=== PATIENT | male | born 1960 | race Caucasian/White ===

== ENCOUNTER 2017-04-19 06:42 | Inpatient (IN) ==
--- NOTE | 2017-04-18 20:40 | Discharge Summary ---
<Violeta Mcneal E - Last Filed: 04/18/17 20:38> Date of Encounter: 04/18/17 - Discharge Diagnosis (1) Fracture of proximal humerus with malunion Priority: Primary Status: Chronic Qualifiers: Encounter type: subsequent encounter Fracture type: closed Fracture morphology: unspecified fracture morphology Laterality: right Qualified Code (s): S42.201P - Unspecified fracture of upper end of right humerus, subsequent encounter for fracture with malunion (2) Seizures Priority: Secondary Status: Chronic Comments: Patient on Keppra (3) Hypothyroidism Priority: Secondary Status: Chronic Qualifiers: Hypothyroidism type: unspecified Qualified Code(s): E03.9 - Hypothyroidism , unspecified (4) Depression Priority: Secondary Status: Chronic Qualifiers: Depression Type: unspecified Qualified Code(s): F32.9 - Major depressive disorder, single episode, unspecified (5) BMI 27.0-27.9,adult Priority: Secondary Status: Chronic (6) Chronic pain Priority: Secondary Status: Chronic Comments: Patient takes Oxycodone 10mg QID from pain provider. Qualifiers: Chronic pain type: other chronic pain Qualified Code(s): G89.29 - Other chronic pain (7) Chronic deep vein thrombosis (DVT) Priority: Secondary Status: Chronic Qualifiers: DVT location: lower extremity Affected thrombotic vein of extremity: unspecified vein of extremity Laterality: unspecified laterality Qualified Code(s): I82.509 - Chronic embolism and thrombosis of unspecified deep veins of unspecified lower extremity - Discharge Medications Home Medications: Gabapentin [Neurontin] 800 mg PO QID 01/26/17 [History] LevETIRAcetam [Keppra] 500 mg PO BID 01/26/17 [History] OxyCODONE Immed Rel [Roxicodone 5 MG] 5 - 10 mg PO Q6HR PRN #40 tablet 04/18/17 [Rx] Levothyroxine [Synthroid] 75 mcg PO QAM 04/19/17 [History] Propranolol [Inderal] 10 mg PO BID 04/19/17 [History] Sertraline [Zoloft] 50 mg PO DAILY 04/19/17 [History] Allergies/Adverse Reactions: Allergies Penicillins Allergy (Verified 01/26/17 11:39) Anaphylaxis Primary care physician: Osmany Shepherd MD - Patient Status Disposition: Home, Self-Care Condition: Good - Discharge Instructions Follow Up With: Osmany Shepherd MD [Primary Care Provider] - - Hospital Course Hospital course: Mr. Ortiz is a 57 year old male - Time Spent with Patient Total time spent providing and/or coordinating discharge services: - VTE Documentation of Mechanical Device: Venous foot pump, device <Saji Nicholas - Last Filed: 04/20/17 07:53> Date of Encounter: 04/20/17 Time of Encounter: 07:51 - Discharge Diagnosis (1) Brachial plexus injury Priority: Secondary Status: Chronic Qualifiers: Encounter type: subsequent encounter Qualified Code(s): S14.3XXD - Injury of brachial plexus, subsequent encounter (2) HTN (hypertension) Priority: Secondary Status: Chronic Qualifiers: Hypertension type: essential hypertension Qualified Code(s): I10 - Essential (primary) hypertension (3) Seizure disorder Priority: Secondary Status: Chronic (4) Fracture of proximal humerus with malunion Priority: Primary Status: Acute Qualifiers: Encounter type: subsequent encounter Fracture type: closed Fracture morphology: unspecified fracture morphology Laterality: right Qualified Code (s): S42.201P - Unspecified fracture of upper end of right humerus, subsequent encounter for fracture with malunion (5) Hypothyroidism Priority: Secondary Status: Chronic Qualifiers: Hypothyroidism type: unspecified Qualified Code(s): E03.9 - Hypothyroidism , unspecified (6) Depression Priority: Secondary Status: Chronic Qualifiers: Depression Type: unspecified Qualified Code(s): F32.9 - Major depressive disorder, single episode, unspecified (7) BMI 27.0-27.9,adult Priority: Secondary Status: Chronic (8) Chronic pain Priority: Secondary Status: Chronic Qualifiers: Chronic pain type: other chronic pain Qualified Code(s): G89.29 - Other chronic pain (9) Chronic deep vein thrombosis (DVT) Priority: Secondary Status: Chronic Qualifiers: DVT location: lower extremity Affected thrombotic vein of extremity: unspecified vein of extremity Laterality: unspecified laterality Qualified Code(s): I82.509 - Chronic embolism and thrombosis of unspecified deep veins of unspecified lower extremity Primary care physician: Osmany Shepherd MD - Patient Status Functional capacity at discharge: independent ambulation Overall status at discharge: patient is progressing back to baseline - Hospital Course Hospital course: Mr. Ortiz is a 57 year old male That is post right total shoulder replacement. Doing well this morning patient has significant issues with both hips and left shoulder. Patient will hold shoulder motion for 4-6 weeks. All questions answered - Time Spent with Patient Total time spent providing and/or coordinating discharge services:
--- NOTE | 2017-04-19 06:55 | History & Physical Report ---
Date of Encounter: 04/19/17 Time of Encounter: 06:55 24 Hour HP Update - Instructions Instructions: If the History and Physical is less than 30 days old and was completed prior to A.M. admission and or procedure and has NOT been updated on calendar day of procedure please complete this update prior to performing procedure. - Update Patient reports changes in Medical Condition: No Changes in examination, assessment, or condition: No Changes in Medication: No Preop tests/diagnostics Reviewed: Yes Surgery Remains Indicated: Yes Consent for Planned Operative Procedure(s) Verified: Yes - Pre-Operative Checklist Preoperative Checklist Indicated: No Prophylactic Antibiotic Ordered: Yes Is VTE Prophylaxis Indicated?: Yes
[2017-04-19] MEDS ORDERED: CeFAZolin Pre 2,000 MG/100 ML 2,000 MG/100 ML BAG IVPB ONE (07:12)
[2017-04-19] MEDS: Ringers Solution, Lactated 1,000 ML IVC SCH ×2 (07:46→09:45)
[2017-04-19] MEDS ORDERED: Famotidine 20 MG/2 ML VIAL IVP ONE (07:55)
[2017-04-19] MEDS ORDERED: Gabapentin 300 MG CAPSULE PO ONE (07:56)
--- NOTE | 2017-04-19 08:04 | Anesthesia Evaluation PreOp ---
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) Other Medical History: Denies Any Significant HX, Thyroid Alcohol Use: none Drug use: none Medications and Allergies Gabapentin [Neurontin] 800 mg PO QID 01/26/17 [History] LevETIRAcetam [Keppra] 500 mg PO BID 01/26/17 [History] OxyCODONE Immed Rel [Roxicodone 5 MG] 5 - 10 mg PO Q6HR PRN #40 tablet 04/18/17 [Rx] Levothyroxine [Synthroid] 75 mcg PO QAM 04/19/17 [History] Propranolol [Inderal] 10 mg PO BID 04/19/17 [History] Sertraline [Zoloft] 50 mg PO DAILY 04/19/17 [History] Allergies Penicillins Allergy (Verified 01/26/17 11:39) Anaphylaxis - Meds/Allergy Pre-op Review Medications Reviewed: Yes Allergies Reviewed: Yes Beta Blockers on Current Med List: Yes (Took Proprenolol last night 1999) Anesthesia Results - Labs Laboratory Tests 03/22/17 03/22/17 09:05 09:05 Hgb 16.4 Hct 50.2 H Plt Count 332 Sodium 138 Potassium 3.7 BUN 14 Creatinine 1.02 Anesthesia Exam O2 Sat Height 1.79 m Height 1.79 m Height 1.79 m Weight 86.183 kg Weight 86.183 kg Weight 86.183 kg O2 Sat by Pulse Oximetry 98 Vital Signs Temp Pulse Resp BP Pulse Ox 98.3 F 102 18 135/90 98 04/19/17 06:52 04/19/17 06:52 04/19/17 06:52 04/19/17 06:52 04/19/17 06:52 Height: 5'11 Weight: 190 lbs NPO (# of Hours): MN Pain Scale: 0 - HEENT Pupil (Motor): Pupils equal, EOMI Mallampati: II Teeth: Edentulous Oral Opening: Less than or equal to 3 - DOG BEAUTICIAN LOC: Oriented DOG BEAUTICIAN Motor: Normal RUE, Normal LUE, Normal RLE, Normal LLE, Normal Face DOG BEAUTICIAN Sensory: Normal: RUE, LUE, RLE, LLE, Face - Cardiac Rhythm: Regular Murmur: None JVD: No Carotid Bruit: No - Pulmonary Breath Sounds: bilateral Clear Respiratory Effort: Symmetrical Anesthesia Assess/Plan ASA Score: 2 Modified Rj Scale for Level of Consciousness: Cooperative, oriented, and tranquil Anesthetic Plan: General, Regional Monitoring Plan: Standard Monitors Recovery Plan: PACU (Discussed GA and RA, agrees to proceed)
[2017-04-19] MEDS ORDERED: *HR* Promethazine 25 MG/ML VIAL IVP PRN (08:59)
[2017-04-19] MEDS ORDERED: *HR* Labetalol 20 MG/4 ML SYRINGE IVP PRN (08:59)
--- NOTE | 2017-04-19 09:09 | Anesthesia Procedures ---
Date of Encounter: 04/19/17 Time of Encounter: 08:30 Procedures: Anesthesia - Nerve Block Procedure Date: 04/19/17 Time: 08:30 Allergies/Adv Reactions: pcn Pre-op Diagnosis: right -rotator cuff arthropathy Surgical Procedure: right total shoulder Checklist: Correct Patient Identifier, Correct procedure, History checked Correct side: Right Blood Thinner: No Monitor Applied: EKG, BP, Pulse Oximetry Supplemental Oxygen via Nasal Cannula (L/min): 2 Sedation: Versed (mg): 4 Sedation: Fentanyl (mcg): 100 Indication: Post Op Analgesia Pre-op Neuro Deficits: No Block Type: Supraclavicular, Other (ICB AND SCP) Catheter placed: No Sterile Technique: Yes Ultrasound used: Yes Anatomy identified: Yes Visual spread of Local: Yes Neuro Stimulation: Yes Nerve Stimulator Range: 0.2 - 0.4 mA Blood on Needle Aspiration: No Smooth Injection of Local: Yes Pain with Injection of Local: No Prep: Chlorhexadine Needle: 22 x 50 mm Stimuplex Local: 0.25% Bupivicaine w/Clonidine 20 mcg/cc (ICB/SCP), Ropivacaine (WITH 8MG DECADRON ) Volume (cc): 50 Number of Attempts: 1 Complications: None/effective block Vitals: Vital Signs - Last 8 Hours Temp Pulse Resp BP Pulse Ox 04/19/17 08:38 92 16 126/82 96 04/19/17 08:28 92 16 122/89 95 04/19/17 08:15 87 16 137/98 97 04/19/17 06:52 98.3 F 102 18 135/90 98 Intake and Output 04/18/17 04/19/17 04/19/17 23:59 07:59 15:59 Other: Weight 86.183 kg Patient Weight 04/19/17 23:59 Weight 86.183 kg Comments: PER DR. NICHOLSON REQUEST
--- NOTE | 2017-04-19 10:35 | Orthopedic Operative Note ---
Date of procedure: 04/19/17 Pre-op diagnosis: Right proximal humeral malunion Post-op diagnosis: same Procedure: Procedure: Right Total Shoulder Replacment Reverse, Estimated blood loss: 300 cc Hardware: Metal and polyethylene replacement: Arthrex large glenoid baseplate, 2 4.5 screws. 1 6.5 screw, 42+4 glenosphere, 11 humeral stem, +9 metal 3 constrained Yanet Exam Under anesthesia: Global restriction of motion Procedural Notes: Patient with severe malunion of right proximal humerus following fracture. Operative procedure: The patient was brought to the operating room and placed on the operating room table. After general anesthesia was administered the operative shoulder was examined. Findings were noted. The patient was placed in the modified beachchair position. All pressure points were padded appropriately. And the head was stabilized in the neutral position. The operative extremity was prepped and draped in the sterile surgical fashion. The patient received IV antibiotics prior to skin incision. A standard deltopectoral approach was made to the operative shoulder. Incision was made to the skin and subcutaneous tissue,hemo stasis was obtained with Bovie cautery. Using careful blunt dissection the cephalic vein was identified and mobilized medially. The deltopectoral interval was developed and the clavipectoral fascia was incised. The patient had extensive abnormal anatomy subperiosteal dissection was required to expose the abnormal proximal humerus humeral head was healed in a posterior superior position extensive osteotomies were performed to help mobilize the proximal humerus expose the glenoid. Anterior and posterior Bankart retractors were placed to expose the glenoid. The glenoid guide was seated and the centering hole was made. It was reamed with the appropriate reamer. The large glenoid baseplate was seated and secured with (2) 4.5 screws and one 6.5 screw. The baseplate was irrigated and dried and the 2+4 Glenosphere was seated and secured with the Aguilar taper. The Aguilar taper was tested and found to be secure the humerus was redislocated and prepared with the diaphyseal reamers, followed by a broaching process up to the appropriate size 11 in 20 degrees of retroversion. Trial reduction found the shoulder to be relocatable. The appropriate 11 stem was impacted in place in the patient's anatomic version. Trial reduction found the shoulder to be relocatable and stable with the appropriate 9 metal and 3 constrained Yanet Trial component was removed and the real implants was seated and secured the shoulder was reduced. The shoulder had excellent motion and excellent stability and no evidence of dislocation. The deep tissue was irrigated with pulse irrigation. The PA close the shoulder Violeta Moore. The deltopectoral interval was closed with a running #1 PDS suture, subcutaneous tissue was irrigated and closed with 0 PDS suture, the skin was closed with skin tara. The patient was placed in a sterile dressing, abduction brace and extubated. The patient was then transferred to the recovery room in stable condition. Anesthesia: GETA Surgeon: Saji Nicholas Condition: stable Disposition: PACU
[2017-04-19] MEDS: *HR* HYDROmorphone (PF) 1 MG/ML SYRINGE IVP PRN ×6 (11:00→23:08)
--- NOTE | 2017-04-19 11:21 | Anesthesia Evaluation Post Op ---
Date of Encounter: 04/19/17 Time of Encounter: 11:20 - Vital Signs Vital Signs: Vital Signs/O2 Sat/Glucose, Most Current Temp Pulse Resp BP Pulse Ox 04/19/17 11:11 89 14 120/82 95 04/19/17 11:01 96 16 127/83 98 04/19/17 10:51 98.7 F 89 20 126/78 100 04/19/17 08:38 92 16 126/82 96 04/19/17 08:28 92 16 122/89 95 04/19/17 08:15 87 16 137/98 97 - Lungs Lungs: Clear Ascult./Percussion - Airway Airway: Non-obstructed - Cardiovascular Regular Rate - Mental Status Mental Status: Alert & Oriented, Answers Appropriately - Pain Pain Scale: 2 - Nausea Vomiting Nausea Vomiting: Not Present - Hydration Hydration: Ice chips - Discharge PostOp Status: Transfer Patient to floor
[2017-04-19] MEDS ORDERED: Naloxone 0.4 MG/ML INJ IVP PRN (11:41)
[2017-04-19] MEDS ORDERED: MOM Conc 10 ML UD.LIQ PO PRN (11:41)
[2017-04-19] MEDS ORDERED: Sennosides 8.6 MG TABLET PO PRN (11:41)
[2017-04-19] MEDS ORDERED: Ringers Solution, Lactated 1,000 ML IVC SCH (11:41)
[2017-04-19] MEDS ORDERED: Temazepam 15 MG CAPSULE PO PRN (11:41)
[2017-04-19] MEDS ORDERED: Ondansetron 4 MG/2 ML VIAL IVP PRN (11:41)
[2017-04-19] MEDS ORDERED: *HR* OxyCODONE Immed Rel 5 MG TABLET PO PRN (11:41)
[2017-04-19 11:49] LABS: Hematocrit 42.7 % (37.5-50.1); Hemoglobin 13.6 g/dL (12.9-16.9)
[2017-04-19] MEDS: *HR* OxyCODONE Immed Rel 5 MG TABLET PO PRN ×3 (12:40→21:11)
[2017-04-19] MEDS: Gabapentin 400 MG CAPSULE PO SCH ×3 (14:13→21:04)
[2017-04-19] MEDS: Clindamycin 900 MG/50 ML 900 MG/50 ML IV.SOLN IVPB SCH ×2 (16:46→23:39)
[2017-04-19] MEDS ORDERED: levETIRAcetam 250 MG TABLET PO SCH (21:00)
[2017-04-20] MEDS: *HR* OxyCODONE Immed Rel 5 MG TABLET PO PRN ×3 (01:23→09:29)
[2017-04-20 06:36] LABS: Hematocrit 35.6 % (37.5-50.1)
[2017-04-20 06:37] LABS: Hemoglobin 11.3 g/dL (12.9-16.9)
[2017-04-20 07:09] VITALS: BP 93/59
--- NOTE | 2017-04-20 07:53 | Orthopedics Progress Note ---
Date of Encounter: 04/20/17 Time of Encounter: 07:53 - Assessment and Plan (1) Brachial plexus injury Current Visit: No Status: Chronic Qualifiers: Encounter type: subsequent encounter Qualified Code(s): S14.3XXD - Injury of brachial plexus, subsequent encounter (2) HTN (hypertension) Current Visit: No Status: Chronic Qualifiers: Hypertension type: essential hypertension Qualified Code(s): I10 - Essential (primary) hypertension (3) Seizure disorder Current Visit: No Status: Chronic (4) Fracture of proximal humerus with malunion Current Visit: Yes Status: Acute Qualifiers: Encounter type: subsequent encounter Fracture type: closed Fracture morphology: unspecified fracture morphology Laterality: right Qualified Code (s): S42.201P - Unspecified fracture of upper end of right humerus, subsequent encounter for fracture with malunion (5) Hypothyroidism Current Visit: Yes Status: Chronic Qualifiers: Hypothyroidism type: unspecified Qualified Code(s): E03.9 - Hypothyroidism , unspecified (6) Depression Current Visit: Yes Status: Chronic Qualifiers: Depression Type: unspecified Qualified Code(s): F32.9 - Major depressive disorder, single episode, unspecified (7) BMI 27.0-27.9,adult Current Visit: Yes Status: Chronic (8) Chronic pain Current Visit: Yes Status: Chronic Qualifiers: Chronic pain type: other chronic pain Qualified Code(s): G89.29 - Other chronic pain (9) Chronic deep vein thrombosis (DVT) Current Visit: Yes Status: Chronic Qualifiers: DVT location: lower extremity Affected thrombotic vein of extremity: unspecified vein of extremity Laterality: unspecified laterality Qualified Code(s): I82.509 - Chronic embolism and thrombosis of unspecified deep veins of unspecified lower extremity Subjective Interval history: Patient was seen this morning doing well without complaints. Afebrile vital signs stable. Operative extremity: Neurovascularly intact Dressing clean dry and intact Calves nontender Assessment and plan: Continue with postoperative care Hematocrit 35 discharged today hold shoulder motion Objective Vital signs: Vital Signs Temp Pulse Resp BP Pulse Ox 04/20/17 07:05 99.5 F 91 18 93/59 93 04/19/17 21:28 98.2 F 100 16 105/65 94 04/19/17 15:43 98.6 F 105 16 91/66 94 04/19/17 14:40 98.5 F 100 14 101/66 94 07/12/17 13:50 98.5 F 100 14 119/78 95 04/19/17 12:53 99.3 F 98 16 99/62 95 04/19/17 12:42 98.3 F 99 16 110/76 97 04/19/17 12:16 98.4 F 93 16 127/85 95 04/19/17 11:40 98.6 F 85 16 121/82 97 04/19/17 11:21 98.6 F 94 18 122/84 96 04/19/17 11:11 89 14 120/82 95 04/19/17 11:01 96 16 127/83 98 04/19/17 10:51 98.7 F 89 20 126/78 100 04/19/17 08:38 92 16 126/82 96 04/19/17 08:28 92 16 122/89 95 04/19/17 08:15 87 16 137/98 97 Intake and Output 04/19/17 04/19/17 04/20/17 15:59 23:59 07:59 Intake Total 1100 / 1100 50 / 50 Output Total 300 / 300 375 / 375 1949 Balance 800 / 800 -325 / -325 -1949 / Intake: IV Fluids 1100 / 1100 50 / 50 Lactated Ringers 1,000 ML 1000 / 1000 @ 25 mls/hr IVC .Q24H [facility] Rx#:[id number] Ancef Premix 2,000 MG/100 100 / 100 ML 2,000 mg In 100 ml @ 200 mls/hr IVPB PREOP ONE Rx#:[id number] Cleocin Premix 900 MG/50 50 / 50 ML 900 mg In 50 ml @ 50 mls/hr IVPB Q8HR [facility] Rx#: [id number] Oral 0 / 0 Output: Urine 375 / 375 1949 Estimated Blood Loss 300 / 300 - Labs CBC & BMP: 04/20/17 04:05 Labs: Abnormal lab results Hgb 11.3 g/dL (12.9-16.9) L D 04/20/17 04:05 Hct 35.6 % (37.5-50.1) L 04/20/17 04:05 - VTE Documentation of Mechanical Device: Venous foot pump, device Consult Discharge Plan - Plan Referrals: Osmany Shepherd MD [Primary Care Provider] -
== END 2017-04-20 10:45 | disposition home or self-care (01) | DRG 483 ==
LOC: SAMDAY 06:42 → 3NENU 11:42
PROVIDERS: ADMIT Orthopaedic Surgery; ATTEND Orthopaedic Surgery

== ENCOUNTER 2017-07-03 12:41 | Inpatient (IN) ==
--- NOTE | 2017-07-03 08:29 | Discharge Summary ---
<Mónica West - Last Filed: 07/03/17 08:25> Date of Encounter: 07/03/17 - Discharge Diagnosis (1) Arthritis of left hip Priority: Primary Status: Acute (2) Status post total hip replacement, left Priority: Primary Status: Acute (3) HTN (hypertension) Priority: Secondary Status: Chronic Qualifiers: Hypertension type: essential hypertension (4) Chronic pain Priority: Secondary Status: Chronic Comments: Chronic pain medication stopped in May. Qualifiers: Chronic pain type: other chronic pain - Discharge Medications Home Medications: Aspirin Enteric Coated [Aspirin EC] 325 mg PO DAILY #21 tablet. 07/03/17 [Rx] Gabapentin [Neurontin] 800 mg PO QID 07/03/17 [History] Levothyroxine [Synthroid] 75 mcg PO 0630 07/03/17 [History] OxyCODONE Immed Rel [Roxicodone 5 MG] 5 mg PO Q6HR PRN #28 tablet 07/03/17 [Rx] Pantoprazole Sodium [Protonix] 40 mg PO BID 07/03/17 [History] Propranolol [Inderal] 10 mg PO BID 07/03/17 [History] Sucralfate [Carafate] 1 gm PO TID 07/03/17 [History] Allergies/Adverse Reactions: 3 Allergy/AdvReac Type Severity Reaction Status Date / Time Penicillins Allergy Anaphylaxis Verified 07/03/17 13:06 Primary care physician: PCP NONE - Patient Status Disposition: Home, Self-Care Condition: Good - Discharge Instructions Follow Up With: NONE,PCP [Non-Partnered Physician] - - Hospital Course Hospital course: Mr. 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: Secondary Status: Chronic (2) Brachial plexus injury Priority: Secondary Status: Chronic Qualifiers: Encounter type: subsequent encounter Qualified Code(s): S14.3XXD - Injury of brachial plexus, subsequent encounter (3) HTN (hypertension) Priority: Secondary Status: Chronic Qualifiers: Hypertension type: unspecified secondary hypertension Qualified Code(s): I15.9 - Secondary hypertension, unspecified; I15 - Secondary hypertension (4) Seizure disorder Priority: Secondary Status: Chronic (5) Fracture of proximal humerus with malunion Priority: Secondary Status: Chronic Qualifiers: Fracture type: closed Fracture morphology: unspecified fracture morphology Laterality: right (6) Hypothyroidism Priority: Secondary Status: Chronic Qualifiers: Hypothyroidism type: unspecified Qualified Code(s): E03.9 - Hypothyroidism , unspecified (7) Depression Priority: Secondary Status: Chronic Qualifiers: Depression Type: unspecified Qualified Code(s): F32.9 - Major depressive disorder, single episode, unspecified (8) Chronic pain Priority: Secondary Status: Chronic Qualifiers: Chronic pain type: other chronic pain Qualified Code(s): G89.29 - Other chronic pain (9) Chronic deep vein thrombosis (DVT) Priority: Secondary Status: Chronic Qualifiers: DVT location: lower extremity Affected thrombotic vein of extremity: unspecified vein of extremity Laterality: unspecified laterality Qualified Code(s): I82.509 - Chronic embolism and thrombosis of unspecified deep veins of unspecified lower extremity (10) Arthritis of left hip Priority: Primary Status: Chronic (11) Status post total hip replacement, left Priority: Primary Status: Acute Primary care physician: Sly Bain DO - Patient Status Functional capacity at discharge: uses cane/walker Overall status at discharge: patient is progressing back to baseline - Hospital Course Hospital course: Mr. Ortiz is a 57 year old male Status post left total hip replacement patient with this use of acute blood loss anemia requiring transfusion no obvious drainage on incision bandage wound clean dry and intact. The patient had an uneventful postoperative course. They received antibiotics and physical therapy and were discharged in stable condition. There will follow -up in the office in 2 weeks. - Time Spent with Patient Total time spent providing and/or coordinating discharge services:
--- NOTE | 2017-07-03 13:09 | History & Physical Report ---
Date of Encounter: 07/03/17 Time of Encounter: 13:09 24 Hour HP Update - Instructions Instructions: If the History and Physical is less than 30 days old and was completed prior to A.M. admission and or procedure and has NOT been updated on calendar day of procedure please complete this update prior to performing procedure. - Update Patient reports changes in Medical Condition: No Changes in examination, assessment, or condition: No Changes in Medication: No Preop tests/diagnostics Reviewed: Yes Surgery Remains Indicated: Yes Consent for Planned Operative Procedure(s) Verified: Yes - Pre-Operative Checklist Preoperative Checklist Indicated: No Prophylactic Antibiotic Ordered: Yes Is VTE Prophylaxis Indicated?: Yes
[2017-07-03] MEDS ORDERED: Lidocaine -MPF 1% 2 ML VIAL ID ONE (13:23)
[2017-07-03] MEDS ORDERED: CeFAZolin Pre 2,000 MG/100 ML 2,000 MG/100 ML BAG IVPB ONE (13:23)
[2017-07-03] MEDS ORDERED: Plasma-Lyte A (PH 7.4) 1,000 ML IVC SCH (13:30)
--- NOTE | 2017-07-03 14:22 | Anesthesia Evaluation PreOp ---
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 07/03/17 [Rx] Gabapentin [Neurontin] 800 mg PO QID 07/03/17 [History] Levothyroxine [Synthroid] 75 mcg PO 0630 07/03/17 [History] OxyCODONE Immed Rel [Roxicodone 5 MG] 5 mg PO Q6HR PRN #28 tablet 07/03/17 [Rx] Pantoprazole Sodium [Protonix] 40 mg PO BID 07/03/17 [History] Propranolol [Inderal] 10 mg PO BID 07/03/17 [History] Sucralfate [Carafate] 1 gm PO TID 07/03/17 [History] 3 Allergy/AdvReac Type Severity Reaction Status Date / Time Penicillins Allergy Anaphylaxis Verified 07/03/17 13:06 - Meds/Allergy Pre-op Review Medications Reviewed: Yes Allergies Reviewed: Yes Beta Blockers on Current Med List: No Anesthesia Results - Labs Laboratory Tests 06/28/17 06/28/17 14:46 14:46 Hgb 13.4 Hct 42.7 Plt Count 319 Sodium 136 Potassium 4.5 BUN 17 Creatinine 0.80 - Imaging EKG: pending Anesthesia Exam Height: 5'10 Weight: 200 lbs NPO (# of Hours): [place] Pain Scale: 0 - HEENT Pupil (Motor): Pupils equal, EOMI Mallampati: III Oral Opening: Less than or equal to 3 - DOMESTIC VIOLENCE COUNSELOR LOC: Oriented DOMESTIC VIOLENCE COUNSELOR Motor: Normal RUE, Normal LUE, Normal RLE, Normal LLE, Normal Face DOMESTIC VIOLENCE COUNSELOR Sensory: Normal: RUE, LUE, RLE, LLE, Face - Cardiac Rhythm: Regular Murmur: None JVD: No Carotid Bruit: No - Pulmonary Breath Sounds: bilateral Clear Respiratory Effort: Symmetrical Anesthesia Assess/Plan ASA Score: 2 Modified Rj Scale for Level of Consciousness: Cooperative, oriented, and tranquil Anesthetic Plan: General Monitoring Plan: Standard Monitors Recovery Plan: PACU (Discussed GA, agrees to proceed)
[2017-07-03] MEDS ORDERED: Ondansetron 4 MG/2 ML VIAL ONE (14:44)
[2017-07-03] MEDS ORDERED: *HR* Propofol 200 MG/20 ML VIAL IVP ONE (14:44)
[2017-07-03] MEDS ORDERED: *HR* Succinylcholine 200 MG/10 ML VIAL IVP ONE (14:44)
[2017-07-03] MEDS ORDERED: Lidocaine -MPF 2% 2 ML VIAL ONE (14:44)
[2017-07-03] MEDS ORDERED: *HR* Midazolam HCl 2 MG/2 ML VIAL ONE (14:45)
[2017-07-03] MEDS ORDERED: *HR* FentaNYL (PF) 100 MCG/2 ML VIAL ONE ×2 (14:47→15:38)
[2017-07-03] MEDS ORDERED: *HR* Meperidine 25 MG/ML SYRINGE IVP PRN (15:01)
[2017-07-03] MEDS ORDERED: Ondansetron 4 MG/2 ML VIAL IVP ONE (15:01)
[2017-07-03] MEDS ORDERED: Acetaminophen IV 1,000 MG/100 ML INFUS..BTL IVPB ONE (15:05)
[2017-07-03] MEDS ORDERED: *HR* Labetalol 20 MG/4 ML SYRINGE IVP PRN (15:07)
[2017-07-03] MEDS ORDERED: Acetaminophen IV 1,000 MG/100 ML INFUS..BTL ONE (15:34)
[2017-07-03] MEDS ORDERED: *HR* HYDROmorphone 2 MG/ML SYRINGE ONE (16:09)
--- NOTE | 2017-07-03 16:31 | Orthopedic Operative Note ---
Date of procedure: 07/03/17 Pre-op diagnosis: Left hip arthritis Post-op diagnosis: same Procedure: Procedure: Left Total Hip Replacment Estimated blood loss: 200 cc Hardware: Metal and polyethylene replacement. Biomet DM Cup: C2 G7 fin cup Femoral size 15 echo full profile lateralized stem Head: 3 head with Yanet Procedural Notes: Grade 4 arthritic changes femoral head acetabular socket. Operative procedure: The patient was brought to the operating room and placed on the operating room table. After general anesthesia was administered the patient was placed in the lateral decubitus position with the operative leg up. All pressure points were padded appropriately and the head was stabilized in the neutral position. The operative extremity was prepped and draped in the sterile surgical fashion patient received IV antibiotic prior to skin incision. A standard posterior approach is made to the operative hip, the incision was made through the skin and subcutaneous tissue hemostasis was obtained with Bovie cautery. Using careful sharp dissection the fascia was identified and incised exposing the external rotators. The external rotators were released off the greater trochanter and tagged with #2 FiberWire suture. The capsule was T'd open and the hip was brought into internal rotation. Patient noted to have grade 4 arthritic changes femoral head. The femoral neck cut was made at the appropriate level. An anterior capsulotomy was performed for the anterior retractor. Soft tissues removed from the acetabulum. Patient noted to have grade 4 arthritic changes acetabulum. Acetabulum was first reamed medially, and then reamed in 15 degrees of anteversion and 45 degrees off the horizontal. It was reamed up to the appropriate size 62 The appropriate-sized 62 acetabular cup was impacted in place in 15 degrees of anteversion and 45 degrees off the horizontal. This had good fit and fixation. The hip was brought back in to internal rotation and prepared with the drawing box tender followed by the canal finder followed by broaching process in 20 degrees anteversion. It was broached up to the appropriate size 15 The femoral implant was impacted in place in 20 degrees of anteversion. Trial reduction found the hip to be stable with 3 head and Yanet. The trials were removed and the real implants were impacted in place. The hip was reduced, patient had apparent equal leg lengths. The hip had excellent stability with forward flexion to 90 degrees adduction of 30 degrees and internal rotation of 60 degrees. The hip had no shuck. The hips after 2 minutes with a Betadine saline solution. It was irrigated out with 2 L of pulse irrigation. The PA closed the hip. Fascia was closed with a running #2 PDS suture. The deep tissue was irrigated and closed deep with #1 PDS suture superficially with 0 PDS suture and skin was closed with Dermabond and skin tara. The patient was placed in a sterile dressing and abduction pillow. The patient was extubated and transferred to the recovery room in stable condition. Anesthesia: MITCH Surgeon: Saji Nicholas Tax Processor: Violeta Mcneal Condition: stable Disposition: PACU
[2017-07-03] MEDS ORDERED: *HR* HYDROmorphone (PF) 1 MG/ML SYRINGE IVP PRN ×2 (16:42→18:27)
[2017-07-03] MEDS: *HR* HYDROmorphone (PF) 1 MG/ML SYRINGE IVP PRN ×2 (17:30→17:42)
--- NOTE | 2017-07-03 17:56 | Anesthesia Evaluation Post Op ---
Date of Encounter: 07/03/17 Time of Encounter: 17:56 - Vital Signs Vital Signs: Last Vital Signs Temp 99.0 F 07/03/17 17:28 Pulse 97 07/03/17 17:48 Resp 16 07/03/17 17:48 BP 109/74 07/03/17 17:48 Pulse Ox 97 07/03/17 17:48 - Lungs Lungs: Clear Ascult./Percussion - Airway Airway: Non-obstructed - Cardiovascular Regular Rate - Mental Status Mental Status: Alert & Oriented, Answers Appropriately - Pain Pain Scale: 4 - Nausea Vomiting Nausea Vomiting: Not Present - Hydration Hydration: NPO - Discharge PostOp Status: Transfer Patient to floor
[2017-07-03] MEDS ORDERED: *HR* Enoxaparin 30 MG/0.3 ML SYRINGE SQ SCH (18:00)
[2017-07-03 18:20] LABS: Hematocrit 42.1 % (37.5-50.1); Hemoglobin 12.4 g/dL (12.9-16.9)
[2017-07-03] MEDS ORDERED: Sennosides 8.6 MG TABLET PO PRN (18:27)
[2017-07-03] MEDS ORDERED: Ondansetron 4 MG/2 ML VIAL IVP PRN (18:27)
[2017-07-03] MEDS ORDERED: MOM Conc 10 ML UD.LIQ PO PRN (18:27)
[2017-07-03] MEDS ORDERED: Temazepam 15 MG CAPSULE PO PRN (18:27)
[2017-07-03] MEDS ORDERED: Naloxone 0.4 MG/ML INJ IVP PRN (18:27)
[2017-07-03] MEDS: Gabapentin 400 MG CAPSULE PO SCH ×2 (19:39→20:29)
[2017-07-03] MEDS: Ascorbic Acid 500 MG TABLET PO SCH (19:41)
[2017-07-03] MEDS: *HR* OxyCODONE Immed Rel 5 MG TABLET PO PRN ×3 (19:41→23:46)
[2017-07-03] MEDS: Clindamycin 900 MG/50 ML 900 MG/50 ML IV.SOLN IVPB SCH (19:41)
[2017-07-03] MEDS: Ringers Solution, Lactated 1,000 ML IVC SCH (20:18)
[2017-07-04] MEDS: Clindamycin 900 MG/50 ML 900 MG/50 ML IV.SOLN IVPB SCH (03:04)
[2017-07-04] MEDS: *HR* OxyCODONE Immed Rel 5 MG TABLET PO PRN (05:14)
[2017-07-04] MEDS: *HR* Enoxaparin 30 MG/0.3 ML SYRINGE SQ SCH ×2 (05:15→16:40)
[2017-07-04] MEDS ORDERED: Ketorolac 30 MG/ML VIAL IVP ONE ×2 (06:30→18:23)
[2017-07-04] MEDS ORDERED: Acetaminophen IV 500 MG/50 ML INFUS..BTL IVPB ONE (06:31)
--- NOTE | 2017-07-04 06:42 | Orthopedics Progress Note ---
Date of Encounter: 07/04/17 Time of Encounter: 06:42 - Assessment and Plan (1) Status post reverse total replacement of right shoulder Current Visit: Yes Status: Chronic (2) Brachial plexus injury Current Visit: No Status: Chronic Qualifiers: Encounter type: subsequent encounter Qualified Code(s): S14.3XXD - Injury of brachial plexus, subsequent encounter (3) HTN (hypertension) Current Visit: No Status: Chronic Qualifiers: Hypertension type: unspecified secondary hypertension Qualified Code(s): I15.9 - Secondary hypertension, unspecified; I15 - Secondary hypertension (4) Seizure disorder Current Visit: No Status: Chronic (5) Fracture of proximal humerus with malunion Current Visit: No Status: Chronic Qualifiers: Fracture type: closed Fracture morphology: unspecified fracture morphology Laterality: right Qualified Code(s): S42.201P - Unspecified fracture of upper end of right humerus, subsequent encounter for fracture with malunion (6) Hypothyroidism Current Visit: No Status: Chronic Qualifiers: Hypothyroidism type: unspecified Qualified Code(s): E03.9 - Hypothyroidism , unspecified (7) Depression Current Visit: No Status: Chronic Qualifiers: Depression Type: unspecified Qualified Code(s): F32.9 - Major depressive disorder, single episode, unspecified (8) Chronic pain Current Visit: No Status: Chronic Qualifiers: Chronic pain type: other chronic pain Qualified Code(s): G89.29 - Other chronic pain (9) Chronic deep vein thrombosis (DVT) Current Visit: No Status: Chronic Qualifiers: DVT location: lower extremity Affected thrombotic vein of extremity: unspecified vein of extremity Laterality: unspecified laterality Qualified Code(s): I82.509 - Chronic embolism and thrombosis of unspecified deep veins of unspecified lower extremity (10) Arthritis of left hip Current Visit: No Status: Chronic (11) Status post total hip replacement, left Current Visit: No Status: Acute Subjective Interval history: Patient was seen this morning doing well without complaints. Afebrile vital signs stable. Operative extremity: Neurovascularly intact Dressing clean dry and intact Calves nontender Assessment and plan: Continue with postoperative care Hematocrit 42 Objective Vital signs: Vital Signs Temp Pulse Resp BP Pulse Ox 07/04/17 06:28 100.1 F H 90 18 97/62 98 07/04/17 05:08 93/61 07/04/17 03:07 98.3 F 91 16 91/61 96 07/03/17 23:35 98.6 F 102 16 104/71 96 07/03/17 22:12 117 98/74 07/03/17 21:27 123 16 102/77 97 07/03/17 20:30 122 16 92/72 97 07/03/17 19:58 97.6 F 95 07/03/17 19:27 98.3 F 125 17 109/60 95 07/03/17 18:55 98.2 F 124 17 96/72 95 07/03/17 18:30 98.2 F 128 17 98/72 96 07/03/17 18:05 106 16 107/81 96 07/03/17 17:58 98.9 F 109 16 111/74 95 07/03/17 17:48 97 16 109/74 97 07/03/17 17:38 93 16 111/79 100 07/03/17 17:28 99.0 F 96 16 102/72 99 07/03/17 17:18 90 16 95/73 93 07/03/17 17:08 101 18 106/71 92 07/03/17 16:58 98.0 F 100 16 99/77 99 07/03/17 13:24 98.7 F 117 18 112/75 97 07/03/17 13:00 98.7 F 117 18 112/75 97 Intake and Output 07/03/17 07/03/17 07/04/17 15:59 23:59 07:59 Intake Total 740 / 740 50 / 50 Output Total 350 / 350 Balance 390 / 390 50 / 50 Intake: IV Fluids 150 / 150 50 / 50 Ancef Premix 2,000 MG/100 ML 2, 100 / 100 000 mg In 100 ml @ 200 mls/hr IVPB PREOP ONE Rx#:[id number] Cleocin Premix 900 MG/50 ML 900 50 / 50 50 / 50 mg In 50 ml @ 50 mls/hr IVPB Q8H [facility] Rx#:[id number] Oral 590 / 590 Output: Urine 150 / 150 Estimated Blood Loss 200 / 200 Other: Weight 90.718 kg 90.8 kg Blood Glucose* 253 Patient Weight 07/04/17 23:59 Weight 90.8 kg - Labs CBC & BMP: 07/03/17 17:17 Labs: Abnormal lab results Hgb 12.4 g/dL (12.9-16.9) L 07/03/17 17:17 - VTE Documentation of Mechanical Device: Venous foot pump, device Consult Discharge Plan - Plan Referrals: NONE,PCP [Non-Partnered Physician] -
[2017-07-04 06:46] LABS: Hematocrit 33.1 % (37.5-50.1)
[2017-07-04 06:54] LABS: BUN/Creatinine Ratio 14 (6-26); Blood Urea Nitrogen 14 mg/dL (8-26); Calcium 8.2 mg/dL (8.6-10.8); Carbon Dioxide 26 mEq/L (19-29); Chloride 102 mEq/L (98-109); Glucose 120 mg/dL (70-99); Osmolality,Calculated 284 (280-300); Potassium 4.6 mEq/L (3.5-4.5); Sodium 136 mEq/L (136-145); eGFR For African Americans > 60 (> 60); eGFR For Non-African Americans > 60 (> 60)
[2017-07-04 07:05] LABS: Hemoglobin 9.9 g/dL (12.9-16.9)
[2017-07-04] MEDS: Gabapentin 400 MG CAPSULE PO SCH ×4 (07:44→20:09)
[2017-07-04] MEDS: Multivit/Ca/Min/Fe/FA 1 TAB TABLET PO SCH (07:44)
[2017-07-04] MEDS: Ascorbic Acid 500 MG TABLET PO SCH ×2 (07:44→16:40)
[2017-07-04] MEDS ORDERED: 0.9 % Sodium Chloride 500 ML IVC ONE ×2 (08:54→10:42)
[2017-07-04] MEDS ORDERED: 0.9 % Sodium Chloride 500 ML ONE (09:01)
--- NOTE | 2017-07-04 12:09 | Event Note ---
Date of Encounter: 07/04/17 Time of Encounter: 12:06 PCR - Left THR 07/04/17 POD#.1 Comorbidities: HTN, Chronic pain, History of seizures Labs: 07/04 - H/H .07/08 - symptomatic and hypotensive - despite 1000 mL Bolus 2 units given Patient seen at bedside. Resting in bed, asleep. Pain control: 07/04 - Added Ofirmev, Toradol, Gabapentin 600mg BID, Lidoderm patch *Chronic pain - used to take Oxycodone 10mg QID - stopped in May Participating in PT. All questions and concerns addressed. Educated on use of incentive spirometer, ambulation, and hydration. Patient educated on post-operative restrictions and care. Addressed: see above D/C plan:. OP in AM 07/05/17
[2017-07-04] MEDS: 0.9 % Sodium Chloride 250 ML IVC SCH ×2 (13:27→19:07)
[2017-07-04] MEDS: Acetaminophen IV 1,000 MG/100 ML INFUS..BTL IVPB SCH (23:13)
[2017-07-05] MEDS: Ketorolac 30 MG/ML VIAL IVP PRN ×3 (01:46→19:11)
[2017-07-05] MEDS: Ringers Solution, Lactated 1,000 ML IVC SCH ×2 (01:50→15:24)
[2017-07-05] MEDS: *HR* OxyCODONE Immed Rel 5 MG TABLET PO PRN ×4 (04:53→17:29)
[2017-07-05] MEDS: *HR* Enoxaparin 30 MG/0.3 ML SYRINGE SQ SCH ×2 (04:53→17:28)
[2017-07-05] MEDS: Acetaminophen IV 1,000 MG/100 ML INFUS..BTL IVPB SCH ×4 (04:54→23:26)
[2017-07-05 06:14] LABS: Hemoglobin 9.7 g/dL (12.9-16.9)
[2017-07-05 06:26] LABS: BUN/Creatinine Ratio 11 (6-26); Blood Urea Nitrogen 9 mg/dL (8-26); Calcium 8.1 mg/dL (8.6-10.8); Carbon Dioxide 27 mEq/L (19-29); Chloride 106 mEq/L (98-109); Glucose 116 mg/dL (70-99); Osmolality,Calculated 286 (280-300); Potassium 3.8 mEq/L (3.5-4.5); Sodium 138 mEq/L (136-145); eGFR For African Americans > 60 (> 60); eGFR For Non-African Americans > 60 (> 60)
[2017-07-05] MEDS: Gabapentin 400 MG CAPSULE PO SCH ×4 (09:07→20:03)
[2017-07-05] MEDS: Ascorbic Acid 500 MG TABLET PO SCH ×2 (09:07→17:28)
[2017-07-05] MEDS: Multivit/Ca/Min/Fe/FA 1 TAB TABLET PO SCH (09:08)
--- NOTE | 2017-07-05 12:50 | Orthopedics Progress Note ---
Date of Encounter: 07/05/17 Time of Encounter: 12:49 - Assessment and Plan (1) Status post reverse total replacement of right shoulder Current Visit: Yes Status: Chronic (2) Brachial plexus injury Current Visit: No Status: Chronic Qualifiers: Encounter type: subsequent encounter Qualified Code(s): S14.3XXD - Injury of brachial plexus, subsequent encounter (3) HTN (hypertension) Current Visit: No Status: Chronic Qualifiers: Hypertension type: unspecified secondary hypertension Qualified Code(s): I15.9 - Secondary hypertension, unspecified; I15 - Secondary hypertension (4) Seizure disorder Current Visit: No Status: Chronic (5) Fracture of proximal humerus with malunion Current Visit: No Status: Chronic Qualifiers: Fracture type: closed Fracture morphology: unspecified fracture morphology Laterality: right Qualified Code(s): S42.201P - Unspecified fracture of upper end of right humerus, subsequent encounter for fracture with malunion (6) Hypothyroidism Current Visit: No Status: Chronic Qualifiers: Hypothyroidism type: unspecified Qualified Code(s): E03.9 - Hypothyroidism , unspecified (7) Depression Current Visit: No Status: Chronic Qualifiers: Depression Type: unspecified Qualified Code(s): F32.9 - Major depressive disorder, single episode, unspecified (8) Chronic pain Current Visit: No Status: Chronic Qualifiers: Chronic pain type: other chronic pain Qualified Code(s): G89.29 - Other chronic pain (9) Chronic deep vein thrombosis (DVT) Current Visit: No Status: Chronic Qualifiers: DVT location: lower extremity Affected thrombotic vein of extremity: unspecified vein of extremity Laterality: unspecified laterality Qualified Code(s): I82.509 - Chronic embolism and thrombosis of unspecified deep veins of unspecified lower extremity (10) Arthritis of left hip Current Visit: No Status: Chronic (11) Status post total hip replacement, left Current Visit: No Status: Acute Subjective Interval history: Patient was seen this morning doing well without complaints. Afebrile vital signs stable. Operative extremity: Neurovascularly intact Dressing clean dry and intact Calves nontender Assessment and plan: Continue with postoperative care Hematocrit 31 Objective Vital signs: Vital Signs Temp Pulse Resp BP Pulse Ox 07/05/17 11:20 99.0 F 84 18 99/62 93 07/05/17 09:50 110/70 07/05/17 06:56 98.6 F 97 20 106/57 95 07/05/17 04:34 98.2 F 78 18 110/75 96 07/04/17 23:03 99.9 F H 97 20 101/64 96 07/04/17 20:32 98.7 F 96 16 91/53 93 07/04/17 18:25 100.1 F H 100 17 87/52 94 07/04/17 18:10 99.5 F 97 19 87/54 97 07/04/17 16:11 99.5 F 100 17 87/55 95 07/04/17 15:20 99.6 F 101 18 81/45 95 07/04/17 13:35 99.4 F 97 17 74/44 97 07/04/17 13:20 100.1 F H 100 16 70/43 96 Intake and Output 07/04/17 07/05/17 07/05/17 23:59 07:59 15:59 Intake Total 1050 / 1050 400 / 400 240 / 240 Output Total 75 / 75 550 / 550 150 / 150 Balance 975 / 975 -150 / -150 90 / 90 Intake: IV Fluids 350 / 350 0.9 % Sodium Chloride 250 ML @ 250 / 250 25 mls/hr IVC .Q10H [facility] Rx#: [id number] Ofirmev 1,000 mg/100 ml 1,000 100 / 100 mg In 100 ml @ 400 mls/hr IVPB Q6H [facility] Rx#:[id number] Oral 100 / 100 400 / 400 240 / 240 Blood Product 600 / 600 Rbcs Leuko Poor As-1 Unit 250 / 250 [id number] Rbcs Leuko Poor As-1 Unit 350 / 350 [id number] Output: Urine 75 / 75 550 / 550 150 / 150 Other: Meal Breakfast Percent of Meal Consumed 10% Weight 91.8 kg Patient Weight 07/05/17 23:59 Weight 91.8 kg - Labs CBC & BMP: 07/05/17 05:34 07/05/17 05:34 Labs: Abnormal lab results Hgb 9.7 g/dL (12.9-16.9) L 07/05/17 05:34 Hct 31.0 % (37.5-50.1) L 07/05/17 05:34 Glucose 116 mg/dL (70-99) H 07/05/17 05:34 Calcium 8.1 mg/dL (8.6-10.8) L 07/05/17 05:34 - VTE Documentation of Mechanical Device: Venous foot pump, device Consult Discharge Plan - Plan Referrals: NONE,PCP [Non-Partnered Physician] -
[2017-07-06] MEDS: Ringers Solution, Lactated 1,000 ML IVC SCH ×3 (04:38→12:25)
[2017-07-06] MEDS: Acetaminophen IV 1,000 MG/100 ML INFUS..BTL IVPB SCH ×2 (04:39→09:20)
[2017-07-06] MEDS: *HR* OxyCODONE Immed Rel 5 MG TABLET PO PRN ×5 (04:50→21:52)
[2017-07-06] MEDS: *HR* Enoxaparin 30 MG/0.3 ML SYRINGE SQ SCH ×2 (06:55→16:52)
--- NOTE | 2017-07-06 06:57 | Orthopedics Progress Note ---
Date of Encounter: 07/06/17 Time of Encounter: 06:56 - Assessment and Plan (1) Status post reverse total replacement of right shoulder Current Visit: Yes Status: Chronic (2) Brachial plexus injury Current Visit: No Status: Chronic Qualifiers: Encounter type: subsequent encounter Qualified Code(s): S14.3XXD - Injury of brachial plexus, subsequent encounter (3) HTN (hypertension) Current Visit: No Status: Chronic Qualifiers: Hypertension type: unspecified secondary hypertension Qualified Code(s): I15.9 - Secondary hypertension, unspecified; I15 - Secondary hypertension (4) Seizure disorder Current Visit: No Status: Chronic (5) Fracture of proximal humerus with malunion Current Visit: No Status: Chronic Qualifiers: Fracture type: closed Fracture morphology: unspecified fracture morphology Laterality: right Qualified Code(s): S42.201P - Unspecified fracture of upper end of right humerus, subsequent encounter for fracture with malunion (6) Hypothyroidism Current Visit: No Status: Chronic Qualifiers: Hypothyroidism type: unspecified Qualified Code(s): E03.9 - Hypothyroidism , unspecified (7) Depression Current Visit: No Status: Chronic Qualifiers: Depression Type: unspecified Qualified Code(s): F32.9 - Major depressive disorder, single episode, unspecified (8) Chronic pain Current Visit: No Status: Chronic Qualifiers: Chronic pain type: other chronic pain Qualified Code(s): G89.29 - Other chronic pain (9) Chronic deep vein thrombosis (DVT) Current Visit: No Status: Chronic Qualifiers: DVT location: lower extremity Affected thrombotic vein of extremity: unspecified vein of extremity Laterality: unspecified laterality Qualified Code(s): I82.509 - Chronic embolism and thrombosis of unspecified deep veins of unspecified lower extremity (10) Arthritis of left hip Current Visit: No Status: Chronic (11) Status post total hip replacement, left Current Visit: No Status: Acute Subjective Interval history: Patient was seen this morning doing well without complaints. Afebrile vital signs stable. Still with episodes of hypotension Operative extremity: Neurovascularly intact Dressing clean dry and intact Calves nontender Assessment and plan: Continue with postoperative care Repeat H&H today monitor blood pressure and for discharge tomorrow Objective Vital signs: Vital Signs Temp Pulse Resp BP Pulse Ox 07/06/17 03:33 98.8 F 86 16 96/57 94 07/05/17 22:43 98.7 F 88 18 92/52 94 07/05/17 20:06 99.0 F 88 20 92/52 94 07/05/17 15:31 99.3 F 90 18 94/63 95 07/05/17 11:20 99.0 F 84 18 99/62 93 07/05/17 09:50 110/70 Intake and Output 07/05/17 07/05/17 07/06/17 15:59 23:59 07:59 Intake Total 1360 / 1360 200 / 200 1000 / 1000 Output Total 600 / 600 925 / 925 1300 / 1300 Balance 760 / 760 -725 / -725 -300 / -300 Intake: IV Fluids 1000 / 1000 200 / 200 1000 / 1000 Lactated Ringers 1,000 ML @ 75 1000 / 1000 1000 / 1000 mls/hr IVC .[id number] [facility] Rx#: [id number] Ofirmev 1,000 mg/100 ml 1,000 200 / 200 mg In 100 ml @ 400 mls/hr IVPB Q6H [facility] Rx#:[id number] Oral 360 / 360 0 / 0 0 / 0 Output: Urine 600 / 600 925 / 925 1300 / 1300 Other: Meal Lunch Percent of Meal Consumed 95% Weight 92.3 kg Patient Weight 07/06/17 23:59 Weight 92.3 kg - Labs CBC & BMP: 07/05/17 05:34 07/05/17 05:34 Labs: Abnormal lab results Hgb 9.7 g/dL (12.9-16.9) L 07/05/17 05:34 Hct 31.0 % (37.5-50.1) L 07/05/17 05:34 Glucose 116 mg/dL (70-99) H 07/05/17 05:34 Calcium 8.1 mg/dL (8.6-10.8) L 07/05/17 05:34 - VTE Documentation of Mechanical Device: Venous foot pump, device Consult Discharge Plan - Plan Referrals: NONE,PCP [Non-Partnered Physician] -
[2017-07-06 08:19] LABS: Hematocrit 28.6 % (37.5-50.1)
[2017-07-06] MEDS ORDERED: 0.9 % Sodium Chloride 250 ML IVC SCH (09:15)
[2017-07-06] MEDS: Multivit/Ca/Min/Fe/FA 1 TAB TABLET PO SCH (09:18)
[2017-07-06] MEDS: Ascorbic Acid 500 MG TABLET PO SCH ×2 (09:18→16:52)
[2017-07-06] MEDS: Gabapentin 400 MG CAPSULE PO SCH ×4 (09:18→20:28)
[2017-07-06] MEDS: 0.9 % Sodium Chloride 250 ML IVC SCH ×4 (11:12→12:26)
--- NOTE | 2017-07-06 12:28 | Event Note ---
Date of Encounter: 07/06/17 Time of Encounter: 12:26 PCR - Left THR 07/04/17 POD#.3 Comorbidities: HTN, Chronic pain, History of seizures Labs: 07/04 - H/H 9.07/08 - symptomatic and hypotensive - despite 1000 mL Bolus 2 units given 07/06 H/H 9.0.6 - Hypotension - 98/63 - Transfuse 1 unit Patient seen at bedside. Pain control: 07/04 - Added Ofirmev, Toradol, Gabapentin 600mg BID, Lidoderm patch *Chronic pain - used to take Oxycodone 10mg QID - stopped in May Participating in PT. All questions and concerns addressed. Educated on use of incentive spirometer, ambulation, and hydration. Patient educated on post-operative restrictions and care. Addressed: see above D/C plan:.Now wants to go home with HH - plan for AM 07/07/17
--- NOTE | 2017-07-06 12:30 | Physician Discharge Referral ---
ExtendedCare Referral Info Transfer To: [facility] Provider in Charge: Provider in Charge after Transfer: PCP Institutional Level of Care: Skilled - Diagnosis (1) Arthritis of left hip Priority: Primary Status: Chronic (2) Status post total hip replacement, left Priority: Primary Status: Acute (3) HTN (hypertension) Priority: Secondary Status: Chronic (4) Chronic pain Priority: Secondary Status: Chronic (5) Acute blood loss as cause of postoperative anemia Status: Acute Expected Duration of Placement: < 30 days Prognosis: Good Aware of Diagnosis: Patient Aware of Prognosis: Patient - Transfer Medications Home Medications: Aspirin Enteric Coated [Aspirin EC] 325 mg PO DAILY #21 tablet. 07/03/17 [Rx] Gabapentin [Neurontin] 800 mg PO QID 07/03/17 [History] Levothyroxine [Synthroid] 75 mcg PO 0630 07/03/17 [History] OxyCODONE Immed Rel [Roxicodone 5 MG] 5 mg PO Q6HR PRN #28 tablet 07/03/17 [Rx] Pantoprazole Sodium [Protonix] 40 mg PO BID 07/03/17 [History] Propranolol [Inderal] 10 mg PO BID 07/03/17 [History] Sucralfate [Carafate] 1 gm PO TID 07/03/17 [History] Allergies/Adverse Reactions: 3 Allergy/AdvReac Type Severity Reaction Status Date / Time Penicillins Allergy Anaphylaxis Verified 07/03/17 13:06 - Respiratory Orders None Smoking Cessation: Smoking cessation has been advised. For more information, call the [place] Tobacco Quit Line at 4-406-LFXFNOW. - Lab Orders Lab Orders: CBC - Ancillary Orders May use pressure relief devices daily prn, May go on MERRY w/family/respon libertarian w /meds at nurse discretion PRN, May consult with Dentist, [employer] Worker, Director Clinical Operations PRN - Mobility Orders Chair, Ambulate - Rehabiliation Orders Rehab Potential: Good Rehab Orders: ROM Exercises, Evaluation for Physical Therapy, Evaluation for Occupational Therapy - Treatments Skin tear care topically daily PRN per policy List/Other: Opsite dressing, leave intact until first post-operative visit. If dressing becomes >50% saturated, contact office, remove dressing and place appropriate dressing in its place. Do not allow for dressing to get wet. Rafa in place, plan to remove at post-operative day #14-16. Total HIP Joint Precautions x 6 weeks Apply cold therapy wrap 3-6x/day for 20 minutes at a time. Encourage ambulation throughout the day Use Incentive spirometer 10x/hour. Elevate affected extremity above heart as tolerated. Brace: Wear hip ABD brace at night x 6 weeks. - Diet Orders Regular CERTIFICATION: I certify that the transfer of the above named patient to an Extended Care Facility is necessary for the continuing treatment of the diagnosis listed. The above information is true and accurate reflection of patient's current condition. Confidential - Redisclosure prohibited without a patient's written consent.
[2017-07-06] MEDS: Ketorolac 30 MG/ML VIAL IVP PRN (16:51)
[2017-07-07] MEDS: *HR* OxyCODONE Immed Rel 5 MG TABLET PO PRN ×3 (01:50→10:35)
[2017-07-07] MEDS: Ketorolac 30 MG/ML VIAL IVP PRN ×2 (01:51→07:32)
[2017-07-07] MEDS: *HR* Enoxaparin 30 MG/0.3 ML SYRINGE SQ SCH (06:22)
--- NOTE | 2017-07-07 06:27 | Orthopedics Progress Note ---
Date of Encounter: 07/07/17 Time of Encounter: 06:26 - Assessment and Plan (1) Status post reverse total replacement of right shoulder Current Visit: Yes Status: Chronic (2) Brachial plexus injury Current Visit: No Status: Chronic Qualifiers: Encounter type: subsequent encounter Qualified Code(s): S14.3XXD - Injury of brachial plexus, subsequent encounter (3) HTN (hypertension) Current Visit: No Status: Chronic Qualifiers: Hypertension type: unspecified secondary hypertension Qualified Code(s): I15.9 - Secondary hypertension, unspecified; I15 - Secondary hypertension (4) Seizure disorder Current Visit: No Status: Chronic (5) Hypothyroidism Current Visit: No Status: Chronic Qualifiers: Hypothyroidism type: unspecified Qualified Code(s): E03.9 - Hypothyroidism , unspecified (6) Depression Current Visit: No Status: Chronic Qualifiers: Depression Type: unspecified Qualified Code(s): F32.9 - Major depressive disorder, single episode, unspecified (7) Chronic pain Current Visit: No Status: Chronic Qualifiers: Chronic pain type: other chronic pain Qualified Code(s): G89.29 - Other chronic pain (8) Chronic deep vein thrombosis (DVT) Current Visit: No Status: Chronic Qualifiers: DVT location: lower extremity Affected thrombotic vein of extremity: unspecified vein of extremity Laterality: unspecified laterality Qualified Code(s): I82.509 - Chronic embolism and thrombosis of unspecified deep veins of unspecified lower extremity (9) Arthritis of left hip Current Visit: No Status: Chronic (10) Status post total hip replacement, left Current Visit: No Status: Acute Subjective Interval history: Patient was seen this morning doing well without complaints. Afebrile vital signs stable. Operative extremity: Neurovascularly intact Dressing clean dry and intact Calves nontender Assessment and plan: Continue with postoperative care Patient doing better discharged today Objective Vital signs: Vital Signs Temp Pulse Resp BP Pulse Ox 07/07/17 03:17 98.7 F 86 16 103/64 95 07/07/17 00:08 98.9 F 91 18 103/65 96 07/06/17 19:44 99.2 F 96 18 101/65 94 07/06/17 15:19 98.1 F 86 18 133/73 96 07/06/17 14:19 99.7 F H 87 16 117/72 96 07/06/17 13:35 72 126/79 07/06/17 11:14 99.0 F 75 16 106/70 93 07/06/17 10:59 98.7 F 82 16 121/73 93 07/06/17 09:44 83 16 129/63 95 07/06/17 09:15 95 07/06/17 08:57 99.0 F 129/63 07/06/17 06:41 98.5 F 83 16 98/63 95 Intake and Output 07/06/17 07/06/17 07/07/17 15:59 23:59 07:59 Intake Total 793 / 793 350 / 350 Output Total 300 / 300 175 / 175 250 / 250 Balance 493 / 493 175 / 175 -250 / -250 Intake: IV Fluids 100 / 100 Ofirmev 1,000 mg/100 ml 1,000 100 / 100 mg In 100 ml @ 400 mls/hr IVPB Q6H [facility] Rx#:[id number] Oral 350 / 350 350 / 350 Blood Product 343 / 343 Rbcs Leuko Poor As-1 Unit 343 / 343 [id number] Output: Urine 300 / 300 175 / 175 250 / 250 Other: Meal Lunch Percent of Meal Consumed 75% Weight 93.4 kg Patient Weight 07/07/17 23:59 Weight 93.4 kg - Labs CBC & BMP: 07/06/17 08:12 07/05/17 05:34 Labs: Abnormal lab results Hgb 9.0 g/dL (12.9-16.9) L 07/06/17 08:12 Hct 28.6 % (37.5-50.1) L 07/06/17 08:12 Glucose 116 mg/dL (70-99) H 07/05/17 05:34 Calcium 8.1 mg/dL (8.6-10.8) L 07/05/17 05:34 - VTE Documentation of Mechanical Device: Venous foot pump, device Consult Discharge Plan - Plan Referrals: NONE,PCP [Non-Partnered Physician] -
[2017-07-07 07:24] VITALS: BP 130/77
[2017-07-07] MEDS: Gabapentin 400 MG CAPSULE PO SCH (07:33)
[2017-07-07] MEDS: Multivit/Ca/Min/Fe/FA 1 TAB TABLET PO SCH (07:33)
[2017-07-07] MEDS: Ascorbic Acid 500 MG TABLET PO SCH (07:33)
== END 2017-07-07 13:56 | disposition home or self-care (01) | DRG 470 ==
LOC: SAMDAY 12:41 → 3NENU 18:27
PROVIDERS: ADMIT Orthopaedic Surgery; ATTEND Orthopaedic Surgery

== ENCOUNTER 2017-09-11 06:29 | Inpatient (IN) ==
--- NOTE | 2017-09-10 18:06 | Discharge Summary ---
<Violeta Mcneal - Last Filed: 09/10/17 18:04> Date of Encounter: 09/10/17 - Discharge Diagnosis (1) Arthritis of right hip Priority: Primary Status: Chronic (2) HTN (hypertension) Priority: Secondary Status: Chronic Qualifiers: Hypertension type: unspecified Qualified Code(s): I10 - Essential (primary ) hypertension (3) Seizure disorder Priority: Secondary Status: Chronic (4) Hypothyroidism Priority: Secondary Status: Chronic Qualifiers: Hypothyroidism type: unspecified (5) Depression Priority: Secondary Status: Chronic Qualifiers: Depression Type: unspecified (6) Status post total hip replacement, left Priority: Secondary Status: Chronic (7) Status post reverse total replacement of right shoulder Priority: Secondary Status: Chronic (8) Chronic deep vein thrombosis (DVT) Status: Chronic Qualifiers: DVT location: lower extremity Affected thrombotic vein of extremity: unspecified vein of extremity Laterality: right Qualified Code(s): I82.501 - Chronic embolism and thrombosis of unspecified deep veins of right lower extremity - Discharge Medications Home Medications: Levothyroxine [Synthroid] 75 mcg PO 2000 07/03/17 [History] Propranolol [Inderal] 10 mg PO BID 07/03/17 [History] Aspirin Enteric Coated [Aspirin EC] 325 mg PO DAILY #21 tablet. 09/10/17 [Rx] OxyCODONE Immed Rel [Roxicodone 5 MG] 5 mg PO Q6HR PRN 7 Days #28 tablet [Rx] Gabapentin [Neurontin] 300 mg PO TID 09/11/17 [History] Allergies/Adverse Reactions: 3 Allergy/AdvReac Type Severity Reaction Status Date / Time Penicillins Allergy Anaphylaxis Verified 09/11/17 07:14 Primary care physician: Dominic Nieves DO - Patient Status Disposition: Home Health Service Condition: Good - Discharge Instructions Follow Up With: Violeta Mcneal PAC [Physician Patient Account Specialist] - 09/21/17 9:15 am Saji Nicholas MD [Partnered Physician] - 10/11/17 4:05 pm Dominic Nieves DO [Primary Care Provider] - 11/23/17 2:30 pm Luis Solomon DO [Partnered Physician] - 11/07/17 8:00 am - Hospital Course Hospital course: Mr. Ortiz is a 57 year old male - Time Spent with Patient Total time spent providing and/or coordinating discharge services: <Saji Nicholas - Last Filed: 09/14/17 08:04> Date of Encounter: 09/14/17 Time of Encounter: 08:04 - Discharge Diagnosis (1) Brachial plexus injury Priority: Secondary Status: Chronic Qualifiers: Encounter type: subsequent encounter Qualified Code(s): S14.3XXD - Injury of brachial plexus, subsequent encounter (2) HTN (hypertension) Priority: Secondary Status: Chronic Qualifiers: Hypertension type: unspecified Qualified Code(s): I10 - Essential (primary ) hypertension (3) Seizure disorder Priority: Secondary Status: Chronic (4) Seizures Status: Chronic (5) Hypothyroidism Status: Chronic Qualifiers: Hypothyroidism type: unspecified Qualified Code(s): E03.9 - Hypothyroidism , unspecified (6) Depression Priority: Secondary Status: Chronic Qualifiers: Depression Type: unspecified Qualified Code(s): F32.9 - Major depressive disorder, single episode, unspecified (7) BMI 27.0-27.9,adult Priority: Secondary Status: Chronic (8) Chronic pain Priority: Secondary Status: Chronic Qualifiers: Chronic pain type: other chronic pain Qualified Code(s): G89.29 - Other chronic pain (9) Chronic deep vein thrombosis (DVT) Priority: Secondary Status: Chronic Qualifiers: DVT location: lower extremity Affected thrombotic vein of extremity: unspecified vein of extremity Laterality: right Qualified Code(s): I82.501 - Chronic embolism and thrombosis of unspecified deep veins of right lower extremity (10) Status post total hip replacement, left Priority: Secondary Status: Chronic (11) Status post reverse total replacement of right shoulder Priority: Secondary Status: Chronic (12) Arthritis of right hip Priority: Primary Status: Chronic (13) Acute blood loss as cause of postoperative anemia Priority: Primary Status: Acute Primary care physician: Dominic Nieves DO - Patient Status Functional capacity at discharge: uses cane/walker Overall status at discharge: patient is progressing back to baseline - Hospital Course Hospital course: Mr. Ortiz is a 57 year old male Patient status post right total hip replacement. Patient's symptomatic with hematocrit 28. Received 2 units of blood. The patient had an uneventful postoperative course. They received antibiotics and physical therapy and were discharged in stable condition. There will follow -up in the office in 2 weeks. - Time Spent with Patient Total time spent providing and/or coordinating discharge services:
--- NOTE | 2017-09-11 06:46 | History & Physical Report ---
Date of Encounter: 09/11/17 Time of Encounter: 06:45 24 Hour HP Update - Instructions Instructions: If the History and Physical is less than 30 days old and was completed prior to A.M. admission and or procedure and has NOT been updated on calendar day of procedure please complete this update prior to performing procedure. - Update Patient reports changes in Medical Condition: No Changes in examination, assessment, or condition: No Changes in Medication: No Preop tests/diagnostics Reviewed: Yes Surgery Remains Indicated: Yes Consent for Planned Operative Procedure(s) Verified: Yes - Pre-Operative Checklist Preoperative Checklist Indicated: No Prophylactic Antibiotic Ordered: Yes Is VTE Prophylaxis Indicated?: Yes
[2017-09-11] MEDS ORDERED: Ethanol\\Acetic Acid\\Na Ace\\Ben 1,000 ML IRRIG.SOLN IR ONE (06:51)
--- NOTE | 2017-09-11 07:00 | Anesthesia Evaluation PreOp ---
Date of Encounter: 09/11/17 Time of Encounter: 07:00 - Past History Planned Operation: Right total hip Cardiac History: Denies any Significant Hx, Other (Takes propranolol for tachycardia.) Pulmonary History: Denies Any Significant HX PUBLIC RELATIONS ANALYST History: Other (traumatic head injury, history of past seizure d/o) Other Medical History: Thyroid, GERD, Other (rheumatoid arthritis) Anesthesia History: No Prior Anesthetic Complications, Past Anesthesia ( multiple prior surgeries without anesthetic complication. Just had the other hip and total shoulder replacement this year.) Alcohol Use: none Drug use: none Medications and Allergies Aspirin Enteric Coated [Aspirin EC] 325 mg PO DAILY #21 tablet. 07/03/17 [Rx] Gabapentin [Neurontin] 800 mg PO QID 07/03/17 [History] Levothyroxine [Synthroid] 75 mcg PO 0630 07/03/17 [History] OxyCODONE Immed Rel [Roxicodone 5 MG] 5 mg PO Q6HR PRN #28 tablet 07/03/17 [Rx] Pantoprazole Sodium [Protonix] 40 mg PO BID 07/03/17 [History] Propranolol [Inderal] 10 mg PO BID 07/03/17 [History] Sucralfate [Carafate] 1 gm PO TID 07/03/17 [History] Aspirin Enteric Coated [Aspirin EC] 325 mg PO DAILY #21 tablet. 09/10/17 [Rx] OxyCODONE Immed Rel [Roxicodone 5 MG] 5 mg PO Q6HR PRN 7 Days #28 tablet [Rx] 3 Allergy/AdvReac Type Severity Reaction Status Date / Time Penicillins Allergy Anaphylaxis Verified 07/03/17 13:06 - Meds/Allergy Pre-op Review Medications Reviewed: Yes Allergies Reviewed: Yes Beta Blockers on Current Med List: Yes (Last pm at 900 pm) Anesthesia Results - Labs Laboratory Tests 08/23/17 08/23/17 16:00 16:00 WBC 9.2 Hgb 15.8 Hct 50.9 H Sodium 140 Potassium 4.4 Chloride 104 Carbon Dioxide 24 BUN 7 L Creatinine 0.90 - Imaging EKG: image reviewed (sinus tachycardia) Anesthesia Exam Selected Entries 09/11/17 06:56 Temperature 98.1 F Pulse Rate 76 Respiratory Rate 18 Blood Pressure 100/69 O2 Sat by Pulse Oximetry 96 Weight: 89 kg BMI 27 NPO (# of Hours): over 8 hours - HEENT Pupil (Motor): Pupils equal Mallampati: I Teeth: Edentulous Oral Opening: Greater than 3 - Cardiac Rhythm: Regular Murmur: None - Pulmonary Breath Sounds: bilateral Clear Respiratory Effort: Symmetrical Anesthesia Assess/Plan ASA Score: 2 Modified Rj Scale for Level of Consciousness: Cooperative, oriented, and tranquil Anesthetic Plan: General Monitoring Plan: Standard Monitors Recovery Plan: PACU
[2017-09-11] MEDS ORDERED: Clindamycin 900 MG/50 ML 900 MG/50 ML IV.SOLN IVPB ONE (07:12)
[2017-09-11] MEDS ORDERED: Lidocaine -MPF 1% 2 ML VIAL ID ONE (07:12)
[2017-09-11] MEDS ORDERED: Ringers Solution, Lactated 1,000 ML IVC SCH ×2 (07:15→07:45)
[2017-09-11] MEDS ORDERED: *HR* Propofol 200 MG/20 ML VIAL IVP ONE (07:27)
[2017-09-11] MEDS ORDERED: *HR* Midazolam HCl 2 MG/2 ML VIAL ONE (07:27)
[2017-09-11] MEDS ORDERED: Ondansetron 4 MG/2 ML VIAL ONE (07:27)
[2017-09-11] MEDS ORDERED: Lidocaine -MPF 2% 2 ML VIAL ONE (07:27)
[2017-09-11] MEDS ORDERED: Dexamethasone 4 MG/ML VIAL ONE (07:27)
[2017-09-11] MEDS ORDERED: *HR* FentaNYL (PF) 100 MCG/2 ML VIAL ONE (07:27)
[2017-09-11] MEDS ORDERED: *HR* Succinylcholine 200 MG/10 ML VIAL IVP ONE (07:29)
[2017-09-11] MEDS ORDERED: Lidocaine -MPF 4% 5 ML AMPUL ONE (07:30)
[2017-09-11] MEDS ORDERED: Naloxone 0.4 MG/ML INJ IVP PRN ×2 (07:35→11:00)
[2017-09-11] MEDS ORDERED: *HR* Promethazine 25 MG/ML VIAL IVP PRN (07:35)
[2017-09-11] MEDS ORDERED: *HR* Labetalol 20 MG/4 ML SYRINGE IVP PRN (07:35)
[2017-09-11] MEDS ORDERED: Ondansetron 4 MG/2 ML VIAL IVP ONE (07:35)
[2017-09-11] MEDS ORDERED: EPHEDrine 50 MG/ML VIAL ONE (08:24)
[2017-09-11] MEDS ORDERED: *HR* HYDROmorphone 2 MG/ML SYRINGE ONE (08:32)
[2017-09-11] MEDS ORDERED: Ketamine *HR* 500 MG/10 ML MDV ONE (09:00)
--- NOTE | 2017-09-11 09:17 | Orthopedic Operative Note ---
Date of procedure: 09/11/17 Pre-op diagnosis: Right Hip arthritis Post-op diagnosis: same Procedure: Procedure: Right Total Hip Replacment robotic-assisted Estimated blood loss: 200 cc Hardware: Metal and polyethylene replacement. [place] DM Cup: 62 cup Femoral size stem 9 Head: 12 head with Yanet Procedural Notes: Grade 4 arthritic changes femoral head acetabular socket, procedure performed with robotic assistance. Operative procedure: The patient was brought to the operating room and placed on the operating room table. After general anesthesia was administered the patient was placed in the lateral decubitus position with the operative leg up. All pressure points were padded appropriately and the head was stabilized in the neutral position. The operative extremity was prepped and draped in the sterile surgical fashion patient received IV antibiotic prior to skin incision. 3 Steinmann pins were placed in the iliac crest 3 cm proximal to the anterior superior iliac spine this was for the robotic-assisted sensor. This was done through a small 2 cm incision. A standard posterior approach is made to the operative hip, the incision was made through the skin and subcutaneous tissue hemostasis was obtained with Bovie cautery. Using careful sharp dissection the fascia was identified and incised exposing the external rotators. The femoral checkpoint was placed leg length was measured at this time utilizing robotic assistance. The operative leg was found to be almost 2 cm shorter than the left leg. The external rotators were released off the greater trochanter and tagged with #2 FiberWire suture. The capsule was T'd open and the hip was brought into internal rotation. Patient noted to have grade 4 arthritic changes femoral head. The femoral neck cut was made at the appropriate level roughly 19 mm proximal to the lesser trochanter aced on preoperative templating. An anterior capsulotomy was performed for the anterior retractor. Soft tissues removed from the acetabulum. Patient noted to have grade 4 arthritic changes acetabulum. The acetabulum checkpoint was placed confirmed. The acetabulum was then mapped with robotic assistance. Based on the preoperative plan the acetabulum was reamed in one step with a 61 reamer. The 62 acetabulum was impacted with robotic assistance and 42 degrees of abduction and 23 degrees of anteversion. The hip was brought back in to internal rotation and prepared with the hand box folder followed by the canal finder followed by the reaming process to a size 9 broaching process in 20 degrees anteversion. It was broached up to the appropriate size 9. Trial reduction revealed leg lengths close to normal. The femoral implant was impacted in place in 20 degrees of anteversion. Trial reduction found the hip to be stable with 12 head and Yanet. The trials were removed and the real implants were impacted in place. The hip was reduced, patient had robotic confirmed leg length of 10 mm shorter than the contralateral side. The hip had excellent stability with forward flexion to 90 degrees adduction of 30 degrees and internal rotation of 60 degrees. The hip had no shuck. The hips after 2 minutes with a Betadine saline solution. It was irrigated out with 2 L of pulse irrigation. The checkpoints were removed, Steinmann pins were removed. The pain incision and the hip were closed by the PA. The deep tissue was irrigated and closed deep with #1 PDS suture superficially with 0 PDS suture and skin was closed with Dermabond and zip tie. The patient was placed in a sterile dressing and abduction pillow. The patient was extubated and transferred to the recovery room in stable condition. Anesthesia: GETA Surgeon: Saji Nicholas Condition: stable Disposition: PACU
[2017-09-11] MEDS ORDERED: Ketorolac 30 MG/ML VIAL ONE (09:33)
[2017-09-11] MEDS: *HR* HYDROmorphone (PF) 1 MG/ML SYRINGE IVP PRN ×6 (09:52→18:25)
[2017-09-11 10:13] LABS: Hemoglobin 13.5 g/dL (12.9-16.9)
[2017-09-11] MEDS ORDERED: MOM Conc 10 ML UD.LIQ PO PRN (11:00)
[2017-09-11] MEDS ORDERED: Sennosides 8.6 MG TABLET PO PRN (11:00)
[2017-09-11] MEDS ORDERED: Ondansetron 4 MG/2 ML VIAL IVP PRN (11:00)
[2017-09-11] MEDS ORDERED: Temazepam 15 MG CAPSULE PO PRN (11:00)
[2017-09-11] MEDS ORDERED: *HR* OxyCODONE Immed Rel 5 MG TABLET PO PRN (11:00)
[2017-09-11] MEDS ORDERED: Clindamycin 900 MG/50 ML 900 MG/50 ML IV.SOLN IVPB SCH (11:00)
--- NOTE | 2017-09-11 11:04 | Anesthesia Evaluation Post Op ---
Date of Encounter: 09/11/17 Time of Encounter: 11:02 - Vital Signs Vital Signs: Vital Signs/O2 Sat/Glucose, Most Current Temp Pulse Resp BP Pulse Ox 09/11/17 10:45 98.8 F 69 12 97/63 94 09/11/17 10:35 75 16 97/66 100 09/11/17 10:25 71 14 97/67 99 09/11/17 10:15 98.0 F 69 16 94/62 96 09/11/17 10:05 68 14 91/66 98 09/11/17 09:55 72 16 98/71 97 09/11/17 09:45 98.7 F 83 16 99/72 98 09/11/17 08:30 98.1 F 76 18 100/69 96 09/11/17 07:22 98.1 F 76 18 100/69 96 - Lungs Lungs: Clear Ascult./Percussion - Airway Airway: Non-obstructed - Cardiovascular Regular Rate - Mental Status Mental Status: Alert & Oriented, Answers Appropriately - Pain Pain Scale: 5 Pain Scale used: Numeric (1 - 10) - Nausea Vomiting Nausea Vomiting: Not Present - Hydration Hydration: Tolerates oral liquids, Has not voided Anes Supervising Prov Stmt: Pt seen/evaluated, VSS and pt has met criteria for discharge to floor. - MD Karmen
[2017-09-11] MEDS: Ascorbic Acid 500 MG TABLET PO SCH ×2 (11:43→16:12)
[2017-09-11] MEDS: Multivit/Ca/Min/Fe/FA 1 TAB TABLET PO SCH (11:44)
[2017-09-11] MEDS: Ringers Solution, Lactated 1,000 ML IVC SCH ×2 (11:44→17:44)
[2017-09-11] MEDS: *HR* OxyCODONE Immed Rel 5 MG TABLET PO PRN ×3 (11:44→21:08)
[2017-09-11] MEDS: Gabapentin 300 MG CAPSULE PO SCH ×2 (14:07→21:08)
[2017-09-11] MEDS: Clindamycin 900 MG/50 ML 900 MG/50 ML IV.SOLN IVPB SCH (16:12)
[2017-09-11] MEDS: *HR* Enoxaparin 30 MG/0.3 ML SYRINGE SQ SCH (17:47)
[2017-09-11] MEDS ORDERED: *HR* Enoxaparin 30 MG/0.3 ML SYRINGE SQ SCH (18:00)
[2017-09-12] MEDS: Clindamycin 900 MG/50 ML 900 MG/50 ML IV.SOLN IVPB SCH (01:05)
[2017-09-12] MEDS ORDERED: Ketorolac 30 MG/ML VIAL IVP ONE (01:52)
[2017-09-12] MEDS ORDERED: Ketorolac 30 MG/ML VIAL IVP PRN (04:49)
[2017-09-12] MEDS ORDERED: Acetaminophen IV 1,000 MG/100 ML INFUS..BTL IVPB PRN (04:50)
[2017-09-12 05:08] LABS: Hematocrit 32.4 % (37.5-50.1)
[2017-09-12 05:11] LABS: Hemoglobin 10.3 g/dL (12.9-16.9)
[2017-09-12 05:21] LABS: BUN/Creatinine Ratio 16 (6-26); Blood Urea Nitrogen 15 mg/dL (8-26); Calcium 8.1 mg/dL (8.6-10.8); Carbon Dioxide 24 mEq/L (19-29); Chloride 104 mEq/L (98-109); Glucose 162 mg/dL (70-99); Osmolality,Calculated 284 (280-300); Potassium 4.7 mEq/L (3.5-4.5); Sodium 135 mEq/L (136-145); eGFR For African Americans > 60 (> 60); eGFR For Non-African Americans > 60 (> 60)
[2017-09-12] MEDS ORDERED: Ringers Solution, Lactated 1,000 ML ONE (07:11)
--- NOTE | 2017-09-12 07:14 | Orthopedics Progress Note ---
Date of Encounter: 09/12/17 Time of Encounter: 07:14 - Assessment and Plan (1) Brachial plexus injury Current Visit: No Status: Chronic Qualifiers: Encounter type: subsequent encounter Qualified Code(s): S14.3XXD - Injury of brachial plexus, subsequent encounter (2) HTN (hypertension) Current Visit: No Status: Chronic Qualifiers: Hypertension type: unspecified Qualified Code(s): I10 - Essential (primary ) hypertension (3) Seizure disorder Current Visit: No Status: Chronic (4) Seizures Current Visit: No Status: Chronic (5) Hypothyroidism Current Visit: No Status: Chronic Qualifiers: Hypothyroidism type: unspecified Qualified Code(s): E03.9 - Hypothyroidism , unspecified (6) Depression Current Visit: No Status: Chronic Qualifiers: Depression Type: unspecified Qualified Code(s): F32.9 - Major depressive disorder, single episode, unspecified (7) BMI 27.0-27.9,adult Current Visit: No Status: Chronic (8) Chronic pain Current Visit: No Status: Chronic Qualifiers: Chronic pain type: other chronic pain Qualified Code(s): G89.29 - Other chronic pain (9) Chronic deep vein thrombosis (DVT) Current Visit: No Status: Chronic Qualifiers: DVT location: lower extremity Affected thrombotic vein of extremity: unspecified vein of extremity Laterality: right Qualified Code(s): I82.501 - Chronic embolism and thrombosis of unspecified deep veins of right lower extremity (10) Status post total hip replacement, left Current Visit: No Status: Chronic (11) Status post reverse total replacement of right shoulder Current Visit: No Status: Chronic (12) Arthritis of right hip Current Visit: No Status: Chronic Subjective Interval history: Patient was seen this morning doing well without complaints. Afebrile postop and hypotensive holding narcotics Operative extremity: Neurovascularly intact Dressing clean dry and intact Calves nontender Assessment and plan: Continue with postoperative care hematocrit 32 bolus given today Objective Vital signs: Vital Signs Temp Pulse Resp BP Pulse Ox 09/12/17 06:38 97.9 F 89 18 73/51 95 09/12/17 03:51 98.8 F 103 18 143/88 95 09/12/17 00:10 99.4 F 97 18 92/60 94 09/11/17 22:51 105 16 79/57 96 09/11/17 21:06 104 84/65 09/11/17 19:29 98.4 F 98 18 90/61 95 09/11/17 15:16 102/71 09/11/17 14:00 97.8 F 94 16 91/64 98 09/11/17 13:00 97.5 F L 97 16 89/63 97 09/11/17 12:00 97.7 F 68 16 96/65 96 09/11/17 11:30 97.5 F L 70 16 101/69 97 09/11/17 11:02 97.7 F 68 17 97/64 97 09/11/17 10:45 98.8 F 69 12 97/63 94 09/11/17 10:35 75 16 97/66 100 09/11/17 10:25 71 14 97/67 99 09/11/17 10:15 98.0 F 69 16 94/62 96 09/11/17 10:05 68 14 91/66 98 09/11/17 09:55 72 16 98/71 97 09/11/17 09:45 98.7 F 83 16 99/72 98 09/11/17 08:30 98.1 F 76 18 100/69 96 09/11/17 07:22 98.1 F 76 18 100/69 96 Intake and Output 09/11/17 09/11/17 09/12/17 15:59 23:59 07:59 Intake Total 480 / 480 1280 / 1280 540 / 540 Output Total 200 / 200 225 / 225 175 / 175 Balance 280 / 280 1055 / 1055 365 / 365 Intake: IV Fluids 700 / 700 Lactated Ringers 1,000 ML @ 75 650 / 650 mls/hr IVC .[id number] MIGUEL Rx#: [id number] Cleocin Premix 900 MG/50 ML 900 50 / 50 mg In 50 ml @ 50 mls/hr IVPB Q8H MIGUEL Rx#:[id number] Oral 480 / 480 580 / 580 540 / 540 Output: Urine 0 / 0 225 / 225 175 / 175 Estimated Blood Loss 200 / 200 Other: Meal Dinner Percent of Meal Consumed 95% Weight 89.358 kg 94.9 kg Patient Weight 09/12/17 23:59 Weight 94.9 kg - Labs CBC & BMP: 09/12/17 04:32 09/12/17 04:32 Labs: Abnormal lab results Hgb 10.3 g/dL (12.9-16.9) L D 09/12/17 04:32 Hct 32.4 % (37.5-50.1) L 09/12/17 04:32 Sodium 135 mEq/L (136-145) L 09/12/17 04:32 Potassium 4.7 mEq/L (3.5-4.5) H 09/12/17 04:32 Glucose 162 mg/dL (70-99) H 09/12/17 04:32 Calcium 8.1 mg/dL (8.6-10.8) L 09/12/17 04:32 - VTE Documentation of Mechanical Device: Venous foot pump, device Consult Discharge Plan - Plan Referrals: Dominic Nieves DO [Primary Care Provider] -
[2017-09-12] MEDS ORDERED: Ringers Solution, Lactated 500 ML IVC ONE (07:22)
[2017-09-12] MEDS: *HR* Enoxaparin 30 MG/0.3 ML SYRINGE SQ SCH ×2 (07:43→18:04)
[2017-09-12] MEDS: Gabapentin 300 MG CAPSULE PO SCH ×3 (08:41→22:27)
[2017-09-12] MEDS: Multivit/Ca/Min/Fe/FA 1 TAB TABLET PO SCH (08:41)
[2017-09-12] MEDS: Ascorbic Acid 500 MG TABLET PO SCH ×2 (08:42→16:33)
[2017-09-12 10:00] LABS: Hematocrit 28.7 % (37.5-50.1); Hemoglobin 9.4 g/dL (12.9-16.9)
--- NOTE | 2017-09-12 11:52 | Event Note ---
Date of Encounter: 09/12/17 Time of Encounter: 12:20 PCR- POD#1 RIGHT THR ROBOTIC 09/11/17 LYN PCR - Patient seen at bedside. Labs: 9.4/28.7 Pain control: Adequate PT held secondary to hypotension - got bolus today - also getting [address] Nicholas All questions and concerns addressed. Educated on use of incentive spirometer, ambulation, and hydration. Patient educated on post-operative restrictions and care. Addressed: see above. D/C plan: home with outpatient therapy pending therapy evaluation
[2017-09-12] MEDS ORDERED: Acetaminophen IV 1,000 MG/100 ML INFUS..BTL IVPB ONE (12:47)
[2017-09-12] MEDS: *HR* OxyCODONE Immed Rel 5 MG TABLET PO PRN ×3 (13:43→22:54)
[2017-09-12] MEDS: 0.9 % Sodium Chloride 250 ML IVC SCH (14:47)
[2017-09-13] MEDS: *HR* OxyCODONE Immed Rel 5 MG TABLET PO PRN ×3 (02:59→20:15)
[2017-09-13] MEDS ORDERED: Acetaminophen IV 1,000 MG/100 ML INFUS..BTL IVPB PRN (05:45)
[2017-09-13 05:53] LABS: Hemoglobin 10.5 g/dL (12.9-16.9)
[2017-09-13] MEDS: *HR* Enoxaparin 30 MG/0.3 ML SYRINGE SQ SCH ×2 (05:58→19:11)
[2017-09-13 06:06] LABS: BUN/Creatinine Ratio 12 (6-26); Blood Urea Nitrogen 9 mg/dL (8-26); Carbon Dioxide 25 mEq/L (19-29); Chloride 105 mEq/L (98-109); Glucose 101 mg/dL (70-99); Osmolality,Calculated 287 (280-300); Potassium 4.1 mEq/L (3.5-4.5); Sodium 139 mEq/L (136-145); eGFR For African Americans > 60 (> 60); eGFR For Non-African Americans > 60 (> 60)
--- NOTE | 2017-09-13 07:59 | Orthopedics Progress Note ---
Date of Encounter: 09/13/17 Time of Encounter: 07:58 - Assessment and Plan (1) Brachial plexus injury Current Visit: No Status: Chronic Qualifiers: Encounter type: subsequent encounter Qualified Code(s): S14.3XXD - Injury of brachial plexus, subsequent encounter (2) HTN (hypertension) Current Visit: No Status: Chronic Qualifiers: Hypertension type: unspecified Qualified Code(s): I10 - Essential (primary ) hypertension (3) Seizure disorder Current Visit: No Status: Chronic (4) Seizures Current Visit: No Status: Chronic (5) Hypothyroidism Current Visit: No Status: Chronic Qualifiers: Hypothyroidism type: unspecified Qualified Code(s): E03.9 - Hypothyroidism , unspecified (6) Depression Current Visit: No Status: Chronic Qualifiers: Depression Type: unspecified Qualified Code(s): F32.9 - Major depressive disorder, single episode, unspecified (7) BMI 27.0-27.9,adult Current Visit: No Status: Chronic (8) Chronic pain Current Visit: No Status: Chronic Qualifiers: Chronic pain type: other chronic pain Qualified Code(s): G89.29 - Other chronic pain (9) Chronic deep vein thrombosis (DVT) Current Visit: No Status: Chronic Qualifiers: DVT location: lower extremity Affected thrombotic vein of extremity: unspecified vein of extremity Laterality: right Qualified Code(s): I82.501 - Chronic embolism and thrombosis of unspecified deep veins of right lower extremity (10) Status post total hip replacement, left Current Visit: No Status: Chronic (11) Status post reverse total replacement of right shoulder Current Visit: No Status: Chronic (12) Arthritis of right hip Current Visit: No Status: Chronic Subjective Interval history: Patient was seen this morning doing well without complaints. Afebrile postop and hypotensive holding narcotics Operative extremity: Neurovascularly intact Dressing clean dry and intact Calves nontender Assessment and plan: Continue with postoperative care hematocrit 32 after 2 units Objective Vital signs: Vital Signs Temp Pulse Resp BP Pulse Ox 09/13/17 06:34 99.4 F 109 18 92/62 93 09/13/17 04:21 99.9 F H 104 17 108/62 95 09/13/17 02:08 99.4 F 101 16 104/69 95 09/13/17 00:58 99.2 F 103 16 85/61 94 09/12/17 23:24 98.7 F 109 16 94/70 95 09/12/17 23:09 100.1 F H 102 16 102/74 95 09/12/17 23:02 100.1 F H 104 16 102/73 95 09/12/17 18:55 100.1 F H 112 17 98/61 98 09/12/17 17:59 99.7 F H 113 18 104/65 97 09/12/17 16:37 109 91/59 95 09/12/17 15:24 98.1 F 103 16 92/61 96 09/12/17 14:47 98.9 F 101 17 88/55 97 09/12/17 14:32 98.6 F 105 17 89/59 94 09/12/17 13:38 102 105/68 09/12/17 10:55 98.1 F 90 18 85/56 97 09/12/17 08:46 71/49 Intake and Output 09/12/17 09/12/17 09/13/17 15:59 23:59 07:59 Intake Total 240 / 240 850 / 850 1030 / 1030 Output Total 525 / 525 450 / 450 700 / 700 Balance -285 / -285 400 / 400 330 / 330 Intake: IV Fluids 200 / 200 Ofirmev 1,000 mg/100 ml 1,000 200 / 200 mg In 100 ml @ 400 mls/hr IVPB ONCE PRN Rx#:[id number] Oral 240 / 240 500 / 500 480 / 480 Blood Product 0 / 0 350 / 350 350 / 350 Rbcs Leuko Poor As-1 Unit 0 / 0 350 / 350 [id number] Rbcs Leuko Poor As-3 2nd Unit 0 / 0 350 / 350 [id number] Output: Urine 525 / 525 450 / 450 700 / 700 Other: Meal Breakfast Dinner Percent of Meal Consumed 85% 25% # Voids 2 - Labs CBC & BMP: 09/13/17 05:19 09/13/17 05:19 Labs: Abnormal lab results Hgb 10.5 g/dL (12.9-16.9) L 09/13/17 05:19 Hct 32.0 % (37.5-50.1) L 09/13/17 05:19 Glucose 101 mg/dL (70-99) H 09/13/17 05:19 Calcium 8.0 mg/dL (8.6-10.8) L 09/13/17 05:19 - VTE Documentation of Mechanical Device: Venous foot pump, device Consult Discharge Plan - Plan Referrals: Violeta Mcneal PAC [Physician Yardage Caller] - 09/21/17 9:15 am Saji Nicholas MD [Partnered Physician] - 10/11/17 4:05 pm Dominic Nieves DO [Primary Care Provider] - 11/23/17 2:30 pm Luis Solomon DO [Partnered Physician] - 11/07/17 8:00 am
[2017-09-13] MEDS: Multivit/Ca/Min/Fe/FA 1 TAB TABLET PO SCH (08:12)
[2017-09-13] MEDS: Gabapentin 300 MG CAPSULE PO SCH ×3 (08:12→20:13)
[2017-09-13] MEDS: Ascorbic Acid 500 MG TABLET PO SCH ×2 (08:23→16:16)
--- NOTE | 2017-09-13 12:16 | Event Note ---
Date of Encounter: 09/13/17 Time of Encounter: 11:15 PCR- POD#2 RIGHT THR ROBOTIC 09/11/17 LYN PCR - Patient seen at bedside. Labs: . Pain control: Adequate Participated in therapy today. Was hypotensive this morning but BP currently 100 /65. Will give another fluid bolus if drops again. Dressing 25% saturated. All questions and concerns addressed. Educated on use of incentive spirometer, ambulation, and hydration. Patient educated on post-operative restrictions and care. Addressed: see above. D/C plan: home with outpatient therapy
[2017-09-13] MEDS: 0.9 % Sodium Chloride 250 ML IVC SCH ×2 (20:28→21:18)
[2017-09-13] MEDS: Ringers Solution, Lactated 1,000 ML IVC SCH ×2 (21:17→21:18)
[2017-09-14] MEDS: *HR* OxyCODONE Immed Rel 5 MG TABLET PO PRN ×3 (00:15→09:11)
[2017-09-14] MEDS: *HR* Enoxaparin 30 MG/0.3 ML SYRINGE SQ SCH (05:26)
[2017-09-14 07:31] VITALS: BP 104/67
[2017-09-14] MEDS: Multivit/Ca/Min/Fe/FA 1 TAB TABLET PO SCH (07:44)
[2017-09-14] MEDS: Gabapentin 300 MG CAPSULE PO SCH (07:44)
[2017-09-14] MEDS: Ascorbic Acid 500 MG TABLET PO SCH (07:44)
[2017-09-14] MEDS: *HR* HYDROmorphone (PF) 1 MG/ML SYRINGE IVP PRN ×2 (07:45→11:28)
--- NOTE | 2017-09-14 08:05 | Orthopedics Progress Note ---
Date of Encounter: 09/14/17 Time of Encounter: 08:04 - Assessment and Plan (1) Brachial plexus injury Current Visit: No Status: Chronic Qualifiers: Encounter type: subsequent encounter Qualified Code(s): S14.3XXD - Injury of brachial plexus, subsequent encounter (2) HTN (hypertension) Current Visit: No Status: Chronic Qualifiers: Hypertension type: unspecified Qualified Code(s): I10 - Essential (primary ) hypertension (3) Seizure disorder Current Visit: No Status: Chronic (4) Seizures Current Visit: No Status: Chronic (5) Hypothyroidism Current Visit: No Status: Chronic Qualifiers: Hypothyroidism type: unspecified Qualified Code(s): E03.9 - Hypothyroidism , unspecified (6) Depression Current Visit: No Status: Chronic Qualifiers: Depression Type: unspecified Qualified Code(s): F32.9 - Major depressive disorder, single episode, unspecified (7) BMI 27.0-27.9,adult Current Visit: No Status: Chronic (8) Chronic pain Current Visit: No Status: Chronic Qualifiers: Chronic pain type: other chronic pain Qualified Code(s): G89.29 - Other chronic pain (9) Chronic deep vein thrombosis (DVT) Current Visit: No Status: Chronic Qualifiers: DVT location: lower extremity Affected thrombotic vein of extremity: unspecified vein of extremity Laterality: right Qualified Code(s): I82.501 - Chronic embolism and thrombosis of unspecified deep veins of right lower extremity (10) Status post total hip replacement, left Current Visit: No Status: Chronic (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 Afebrile postop and hypotensive holding narcotics Operative extremity: Neurovascularly intact Dressing clean dry and intact Calves nontender Assessment and plan: Continue with postoperative care dc today Objective Vital signs: Vital Signs Temp Pulse Resp BP Pulse Ox 09/14/17 07:53 98 09/14/17 07:00 98.2 F 87 16 104/67 98 09/14/17 03:38 98.4 F 96 18 99/69 96 09/13/17 23:04 98.9 F 113 18 103/68 95 09/13/17 21:57 100.1 F H 108 18 96/60 94 09/13/17 18:34 101 F H 100 18 100/62 98 09/13/17 14:30 98.9 F 120 18 89/62 95 09/13/17 11:12 98.5 F 102 18 100/65 97 09/13/17 09:47 80/55 Intake and Output 09/13/17 09/14/17 09/14/17 23:59 07:59 15:59 Intake Total 2800 / 2800 Output Total 325 / 325 1000 / 1000 Balance 2475 / 2475 -1000 / -1000 Intake: IV Fluids 2150 / 2150 Lactated Ringers 1,000 ML @ 75 1000 / 1000 mls/hr IVC .[id number] MIGUEL Rx#: [id number] Oral 650 / 650 Output: Urine 325 / 325 1000 / 1000 Other: Meal Dinner Percent of Meal Consumed 20% Weight 94.58 kg Patient Weight 09/14/17 23:59 Weight 94.58 kg - Labs CBC & BMP: 09/13/17 05:19 09/13/17 05:19 Labs: Abnormal lab results Hgb 10.5 g/dL (12.9-16.9) L 09/13/17 05:19 Hct 32.0 % (37.5-50.1) L 09/13/17 05:19 Glucose 101 mg/dL (70-99) H 09/13/17 05:19 Calcium 8.0 mg/dL (8.6-10.8) L 09/13/17 05:19 - VTE Documentation of Mechanical Device: Venous foot pump, device Consult Discharge Plan - Plan Referrals: Violeta Mcneal PAC [Physician Splicing Supervisor] - 09/21/17 9:15 am Saji Nicholas MD [Partnered Physician] - 10/11/17 4:05 pm Dominic Nieves DO [Primary Care Provider] - 11/23/17 2:30 pm Luis Solomon DO [Partnered Physician] - 11/07/17 8:00 am
== END 2017-09-14 13:33 | disposition home health service (06) | DRG 470 ==
LOC: SAMDAY 06:29 → 3NENU 10:51
PROVIDERS: ADMIT Orthopaedic Surgery; ATTEND Orthopaedic Surgery

== ENCOUNTER 2022-02-02 12:02 | Inpatient (IN) ==
[2022-02-02 13:17] LABS: Immature Granulocytes % 0.2 % (0-4); Red Blood Count 4.13 M/mcL (4.19-5.50)
[2022-02-02 13:19] LABS: Basophils % 0.4 %; Eosinophils # 0.2 K/mcL (0.0-0.6); Eosinophils % 3.8 %; Hematocrit 40.6 % (37.5-50.1); Hemoglobin 12.8 g/dL (12.9-16.9); Immature Platelets 5.4 % (1.1-6.1); Lymphocytes # 1.2 K/mcL (0.6-4.6); Lymphocytes % 26.4 %; Mean Corpuscular HGB Conc 31.5 g/dL (31.6-35.5); Mean Corpuscular Volume 98.3 fL (83.0-100.0); Mean Platelet Volume 9.9 fL (9.4-12.4); Monocytes # 0.6 K/mcL (0.0-1.3); Monocytes % 12.8 %; Neutrophils # 2.5 K/mcL (1.6-8.9); Platelet Count 158 K/mcL (140-400); Red Cell Distribution Width 13.3 % (11.5-14.5); Segmented Neutrophils % 56.4 %; White Blood Count 4.5 K/mcL (4.3-11.1)
[2022-02-02 13:39] LABS: BUN/Creatinine Ratio 16 (6-26); Blood Urea Nitrogen 16 mg/dL (6-20); Calcium 9.5 mg/dL (8.6-10.3); Carbon Dioxide 26 mEq/L (23-29); Chloride 100 mEq/L (98-107); Glucose 105 mg/dL (70-105); Osmolality,Calculated 286 (280-300); Potassium 3.6 mEq/L (3.5-5.1); Sodium 137 mEq/L (136-145); Troponin I < 0.03 ng/mL (< 0.04); eGFR For African Americans > 60 (> 60); eGFR For Non-African Americans > 60 (> 60)
[2022-02-02 13:46] LABS: Platelet Estimate Normal (Normal)
[2022-02-02] MEDS ORDERED: Cefepime HCl 1,000 MG in 0.9 % Sodium Chloride 10 ML IVP STA (14:31)
[2022-02-02] MEDS ORDERED: Vancomycin 1,250 MG/262.5 ML IV.SOLN IVPB ONE (14:31)
[2022-02-02] MEDS ORDERED: Ondansetron 4 MG/2 ML VIAL IVP PRN (15:44)
[2022-02-02] MEDS ORDERED: Naloxone 0.4 MG/ML INJ IVP PRN (15:44)
[2022-02-02 16:17] LABS: C-Reactive Protein < 5 mg/L (Less than 10)
[2022-02-02] MEDS: *HR* HYDROcodone/Acet 5/325 mg TABLET PO PRN ×2 (16:32→22:45)
[2022-02-02] MEDS: *HR* OxyCODONE Immed Rel 5 MG TABLET PO PRN (19:31)
[2022-02-02] MEDS: MethylPREDNISolone 40 MG/ML VIAL IVP SCH (19:37)
[2022-02-02] MEDS: Ringers Solution, Lactated 1,000 ML IVC SCH (19:38)
[2022-02-03] MEDS: *HR* Heparin 5,000 UNIT/ML VIAL SQ SCH ×2 (00:05→06:27)
[2022-02-03] MEDS: *HR* OxyCODONE Immed Rel 5 MG TABLET PO PRN ×4 (01:45→21:59)
[2022-02-03 02:30] LABS: Eosinophils % 0.3 %; Hematocrit 40.8 % (37.5-50.1); Hemoglobin 13.5 g/dL (12.9-16.9); Immature Granulocytes % 0.5 % (0-4); Lymphocytes # 0.5 K/mcL (0.6-4.6); Lymphocytes % 14.3 %; Mean Corpuscular HGB Conc 33.1 g/dL (31.6-35.5); Mean Corpuscular Volume 93.6 fL (83.0-100.0); Mean Platelet Volume 9.1 fL (9.4-12.4); Monocytes # 0.1 K/mcL (0.0-1.3); Monocytes % 2.9 %; Neutrophils # 3.1 K/mcL (1.6-8.9); Platelet Count 210 K/mcL (140-400); Red Blood Count 4.36 M/mcL (4.19-5.50); Red Cell Distribution Width 12.9 % (11.5-14.5); White Blood Count 3.8 K/mcL (4.3-11.1)
[2022-02-03] MEDS: MethylPREDNISolone 40 MG/ML VIAL IVP SCH ×4 (02:32→23:58)
[2022-02-03 02:39] LABS: BUN/Creatinine Ratio 15 (6-26); Blood Urea Nitrogen 14 mg/dL (6-20); Calcium 9.5 mg/dL (8.6-10.3); Carbon Dioxide 28 mEq/L (23-29); Chloride 100 mEq/L (98-107); Glucose 133 mg/dL (70-105); Osmolality,Calculated 284 (280-300); Phosphorous 3.3 mg/dL (2.7-4.5); Potassium 4.3 mEq/L (3.5-5.1); Sodium 136 mEq/L (136-145); eGFR For African Americans > 60 (> 60); eGFR For Non-African Americans > 60 (> 60)
[2022-02-03] MEDS: *HR* HYDROcodone/Acet 5/325 mg TABLET PO PRN ×3 (05:14→17:34)
[2022-02-03] MEDS: Vancomycin 1,250 MG/262.5 ML IV.SOLN IVPB SCH ×2 (05:14→15:31)
[2022-02-03] MEDS: levoFLOXacin 750 MG/150 ML 750 MG/150 ML BAG IVPB SCH (08:28)
[2022-02-03] MEDS: Ringers Solution, Lactated 1,000 ML IVC SCH (12:38)
[2022-02-03] MEDS: Apixaban 5 MG TABLET PO SCH ×2 (12:38→21:59)
[2022-02-04] MEDS: *HR* HYDROcodone/Acet 5/325 mg TABLET PO PRN ×4 (00:01→18:28)
[2022-02-04] MEDS: *HR* OxyCODONE Immed Rel 5 MG TABLET PO PRN ×4 (04:07→22:48)
[2022-02-04] MEDS: Vancomycin 1,250 MG/262.5 ML IV.SOLN IVPB SCH ×2 (05:22→17:34)
[2022-02-04] MEDS: MethylPREDNISolone 40 MG/ML VIAL IVP SCH (08:33)
[2022-02-04] MEDS: levoFLOXacin 750 MG/150 ML 750 MG/150 ML BAG IVPB SCH (08:34)
[2022-02-04] MEDS ORDERED: *HR* Metoprolol 5 MG/5 ML VIAL IVP PRN (15:12)
[2022-02-04] MEDS ORDERED: *HR* Rivaroxaban 10 MG TABLET PO SCH (17:00)
[2022-02-05] MEDS: *HR* HYDROcodone/Acet 5/325 mg TABLET PO PRN ×3 (00:30→12:42)
[2022-02-05] MEDS: *HR* OxyCODONE Immed Rel 5 MG TABLET PO PRN ×2 (04:48→10:51)
[2022-02-05] MEDS: Vancomycin 1,250 MG/262.5 ML IV.SOLN IVPB SCH (04:48)
[2022-02-05] MEDS: levoFLOXacin 750 MG/150 ML 750 MG/150 ML BAG IVPB SCH (08:10)
[2022-02-05] MEDS ORDERED: Isovue-370 500 ML BOTTLE IVP ONE (08:57)
[2022-02-05] MEDS ORDERED: predniSONE 20 MG TABLET PO SCH (09:00)
[2022-02-05 11:24] VITALS: BP 144/86; PULSE 65; TEMP 97.9; O2SAT 99
[2022-02-05 12:49] LABS: Troponin I 0.06 ng/mL (< 0.04)
[2022-02-05 13:03] LABS: BUN/Creatinine Ratio 15 (6-26); Blood Urea Nitrogen 15 mg/dL (6-20); Calcium 8.9 mg/dL (8.6-10.3); Carbon Dioxide 18 mEq/L (23-29); Chloride 101 mEq/L (98-107); Glucose 106 mg/dL (70-105); Osmolality,Calculated 275 (280-300); Potassium 4.9 mEq/L (3.5-5.1); Sodium 132 mEq/L (136-145); eGFR For African Americans > 60 (> 60); eGFR For Non-African Americans > 60 (> 60)
== END 2022-02-05 14:50 | disposition home or self-care (01) | DRG 603 ==
LOC: EMEROOARM 12:02 → 3ANU 12:02 → SUATTDRO 19:25
PROVIDERS: ADMIT Internal Medicine; ATTEND Internal Medicine